=== PATIENT | male | born 1940 | race Caucasian/White ===

== ENCOUNTER 2017-07-21 22:02 | Inpatient (IN) | payer MEDICARE ==
[~2017-07-21] VITALS: Ht 180.3 cm; Wt 118.9 kg
[~2017-07-21 22:02] MED LIST: ASPIR 8181 MG; ATORVASTATIN CA80 MG PO; B12 5,000 MCG1 EACH PO; CLOPIDOGREL75 MG PO; D3 DOTS2000 UNIT PO; EFFIENT10 MG; GLIPIZIDE10 MG PO; GLUCOPHAGE500 MG PO; HYDROCHLOROTHIA25 MG PO; JANUVIA100 MG PO; JANUVIA50 MG PO; KEFLEX500 MG PO; NIACIN500 M1 PO; OMEGA 3 FISH O1 EACH PO; PLAVIX75 MG PO; RAMIPRIL10 MG PO; SOTALOL80 MG PO; WARFARIN SODIUM5 MG PO
[2017-07-21] MEDS ORDERED: KETOROLAC TROMETHAMINE 30 MG/ML VIAL IV STA (22:25)
[2017-07-21] MEDS ORDERED: SODIUM CHLORIDE 0.9% 500ML 500 ML IV STA (22:25)
[2017-07-21] MEDS ORDERED: ONDANSETRON HCL 4 MG ORAL DISINTEGRATING TAB PO ONE (22:30)
[2017-07-21] MEDS ORDERED: KETOROLAC TROMETHAMINE 30 MG/ML VIAL ONE (22:31)
[2017-07-21] MEDS ORDERED: ONDANSETRON HCL INJ 2 MG/ML VIAL ONE (22:32)
[2017-07-21] MEDS ORDERED: ONDANSETRON HCL INJ 2 MG/ML VIAL IV STA (23:04)
[2017-07-22] VITALS (8 sets, daily range): BP systolic 94–116; BP diastolic 54–70
[2017-07-22 00:16] LABS: BASOPHILS # (AUTO) 0.1 (0.0-0.1); BASOPHILS % 0.6 % (0.0-1.0); EOSINOPHILS # (AUTO) 0.4 (0.0-0.4); HEMATOCRIT 49.8 % (38.2-49.6); HEMOGLOBIN 16.6 g/dL (14.0-18.0); LYMPHOCYTES # (AUTO) 1.7 (1.0-3.2); LYMPHOCYTES % 13.4 % (18.0-39.1); MEAN CORPUSCULAR HEMOGLOBIN 30.1 pg (28-32); MEAN CORPUSCULAR HGB CONC 33.3 g/dL (31-35); MEAN CORPUSCULAR VOLUME 90.4 fL (81-99); MONOCYTES # (AUTO) 1.4 (0.2-0.8); MONOCYTES % 10.6 % (4.4-11.3); NEUTROPHILS # (AUTO) 9.3 (2.1-6.9); PLATELET COUNT 213 x10e3/uL (140-360); RED BLOOD COUNT 5.51 x10e6/uL (4.3-5.7); RED CELL DISTRIBUTION WIDTH 14.2 % (11.7-14.4)
[2017-07-22 00:35] LABS: ALBUMIN 3.7 g/dL (3.5-5.0); ALBUMIN/GLOBULIN RATIO 1.1 (0.8-2.0); CALCIUM 9.2 mg/dL (8.4-10.2); CREATININE, SERUM 2.84 mg/dL (0.72-1.25)
[2017-07-22] MEDS ORDERED: GLIPIZIDE5 MG PO (00:52)
[2017-07-22 01:07] LABS: CLARITY,URINE CLEAR (CLEAR); COLOR,URINE YELLOW (YELLOW)
[2017-07-22 01:08] LABS: BILIRUBIN,URINE NEGATIVE (NEGATIVE); KETONES,URINE NEGATIVE (NEGATIVE); LEUKOCYTE ESTERASE ,URINE NEGATIVE (NEGATIVE); NITRITE,URINE NEGATIVE (NEGATIVE); PROTEIN,URINE DIPSTICK NEGATIVE (NEGATIVE); URINE UROBILINOGEN 0.2 mg/dL (0.2 - 1)
[2017-07-22 01:09] LABS: EPITHELIAL CELLS,URINE FEW /LPF; RBC,URINE 0-5 /HPF (0-5); WBC,URINE (MAN) 0-5 /HPF (0-5)
--- NOTE | 2017-07-22 02:02 | Diagnostic Imaging Report ---
EXAM: CT ABDOMEN/PELVIS WO DATE: 07/22/2017 12:00 AM INDICATION: Abdominal pain COMPARISON: 02/11/2013 TECHNIQUE: The abdomen and pelvis were scanned using a multidetector helical scanner. Coronal and sagittal reformations were obtained. Routine protocol performed. IV Contrast: 0 ml Isovue 300/370 FINDINGS: Lack of IV contrast decreases sensitivity in evaluating abdominal and pelvic organs. LOWER THORAX: Scattered linear atelectasis/scarring. LIVER/BILIARY: No masses. No ductal dilatation. GALLBLADDER: Unremarkable SPLEEN: Unremarkable PANCREAS: Unremarkable ADRENALS: No nodules KIDNEYS: Innumerable bilateral renal cystic lesions, many which have increased in size from prior. Nonobstructing 6 mm left lower renal calculus. Minimal left hydroureteronephrosis and inflammatory changes related to a 4 mm UVJ calculus. GI TRACT: No wall thickening or evidence of obstruction. Diverticulosis. Normal appendix. VESSELS: Mild to moderate atherosclerotic calcification. PERITONEUM/RETROPERITONEUM: No free air or fluid LYMPH NODES: No lymphadenopathy REPRODUCTIVE ORGANS/BLADDER: Mild apparent bladder wall thickening may be related to underdistention. Normal prostate size. SOFT TISSUES: Fat-containing inguinal hernias. BONES: Multilevel degenerative changes. IMPRESSION: 4 mm left UVJ calculus with resulting minimal left hydroureteronephrosis and inflammatory changes. Innumerable bilateral benign-appearing renal cystic lesions, increased in size from 2012. Signed by: Dr Marilia Monk MD on 07/22/2017 1:58 AM
[2017-07-22] MEDS ORDERED: HYDROMORPHONE 1MG/1ML INJ IV PRN (02:30)
[2017-07-22] MEDS ORDERED: ONDANSETRON HCL INJ 2 MG/ML VIAL IV PRN ×2 (02:30→06:00)
[2017-07-22] MEDS: SODIUM CHLORIDE 0.9% 1000ML 1,000 ML IV SCH ×3 (02:47→17:26)
--- OUTSIDE RECORDS SUMMARY | 2017-07-22 03:14 | XMS REPORT ---
Author Author [facility] Address Unknown Phone Unavailable Care Team Providers Care Shipping/Receiving Clerk Name Role Phone ADEEL BOYKIN Unavailable Unavailable Problems This patient has no known problems. Allergies, Adverse Reactions, Alerts This patient has no known allergies or adverse reactions. Medications This patient has no known medications. Results Test Description Test Time Test Comments Text Results Atomic Results Result Comments CT ABDOMEN/PELVIS WO [place] [address] Patient Name: DARWIN ORTIZ MR #: [id number] : 1940 Age/Sex: 77/M Req # : [id number] Adm Physician: Ordered by: ADEEL BOYKIN MD Report #: [id number] Location: ER Room/Bed: Procedure: [id number] CT/CT ABDOMEN/PELVIS WO Exam Date: 07/22/17 Exam Time: 0120 REPORT STATUS: Signed EXAM: CT ABDOMEN/PELVIS WO DATE : 07/22/2017 12:00 AM INDICATION: Abdominal pain COMPARISON: 02/11/2013 TECHNIQUE: The abdomen and pelvis were scanned using a multidetector helical scanner. Coronal and sagittal reformations were obtained. Routine protocol performed. IV Contrast: 0 ml Isovue 300/370 FINDINGS: Lack of IV contrast decreases sensitivity in evaluating abdominal and pelvic organs. LOWER THORAX: Scattered linear atelectasis/scarring. LIVER/BILIARY: No masses. No ductal dilatation. GALLBLADDER: Unremarkable SPLEEN: Unremarkable PANCREAS: Unremarkable ADRENALS: No nodules KIDNEYS: Innumerable bilateral renal cystic lesions, many which have increased in size from prior. Nonobstructing 6 mm left lower renal calculus. Minimal left hydroureteronephrosis and inflammatory changes related to a 4 mm UVJ calculus. GI TRACT: No wall thickening or evidence of obstruction. Diverticulosis. Normal appendix. VESSELS: Mild to moderate atherosclerotic calcification. PERITONEUM/RETROPERITONEUM: No free air or fluid LYMPH NODES : No lymphadenopathy REPRODUCTIVE ORGANS/BLADDER: Mild apparent bladder wall thickening may be related to underdistention. Normal prostate size. SOFT TISSUES: Fat-containing inguinal hernias. BONES: Multilevel degenerative changes. IMPRESSION: 4 mm left UVJ calculus with resulting minimal left hydroureteronephrosis and inflammatory changes. Innumerable bilateral benign-appearing renal cystic lesions, increased in size from 2013. Signed by: Dr Porsha Monk MD on 07/22/2017 1:58 AM Dictated By: PORSHA MONK MD 7 Transcribed By: QI on 07/22/17157 COPY TO: ADEEL BOYKIN MD
[2017-07-22] MEDS ORDERED: ONDANSETRON HCL 4 MG ORAL DISINTEGRATING TAB PO PRN (06:00)
[2017-07-22] MEDS ORDERED: HYDRALAZINE HCL 20 MG/ML VIAL IV PRN (06:00)
[2017-07-22] MEDS ORDERED: ACETAMINOPHEN 325 MG TAB PO PRN (06:00)
[2017-07-22] MEDS ORDERED: ENOXAPARIN SOD INJ 40 MG/0.4 ML SYR SC STA (06:36)
[2017-07-22] MEDS ORDERED: DEXTROSE 50% SYRINGE 50 ML IV PRN (06:45)
[2017-07-22] MEDS: MORPHINE SULFATE 2 MG/ML SYR IV PRN (07:46)
[2017-07-22] MEDS: FAMOTIDINE 20 MG TAB PO SCH ×2 (08:55→17:26)
[2017-07-22] MEDS ORDERED: SITAGLIPTIN PHOSPHATE 100 MG PO SCH (09:00)
[2017-07-22] MEDS ORDERED: NON-FORMULARY MEDICATION (Glipizide 5 MG) PO SCH (09:00)
[2017-07-22 09:05] LABS: BASOPHILS # (AUTO) 0.1 (0.0-0.1); BASOPHILS % 0.4 % (0.0-1.0); EOSINOPHILS # (AUTO) 0.2 (0.0-0.4); EOSINOPHILS % 1.5 % (0.0-6.0); HEMATOCRIT 46.1 % (38.2-49.6); HEMOGLOBIN 15.3 g/dL (14.0-18.0); LYMPHOCYTES # (AUTO) 2.1 (1.0-3.2); LYMPHOCYTES % 15.4 % (18.0-39.1); MEAN CORPUSCULAR HEMOGLOBIN 30.1 pg (28-32); MEAN CORPUSCULAR HGB CONC 33.2 g/dL (31-35); MEAN CORPUSCULAR VOLUME 90.7 fL (81-99); MONOCYTES # (AUTO) 1.5 (0.2-0.8); MONOCYTES % 10.7 % (4.4-11.3); NEUTROPHILS # (AUTO) 9.7 (2.1-6.9); NEUTROPHILS % 71.6 % (38.7-80.0); PLATELET COUNT 190 x10e3/uL (140-360); RED BLOOD COUNT 5.08 x10e6/uL (4.3-5.7); RED CELL DISTRIBUTION WIDTH 14.1 % (11.7-14.4)
[2017-07-22] MEDS: GLIPIZIDE 5 MG TAB PO SCH (09:12)
[2017-07-22] MEDS: INSULIN LISPRO 100 UNIT/1 ML 3ML VIAL SQ SCH ×4 (09:12→21:00)
[2017-07-22 09:16] LABS: CALCIUM 8.6 mg/dL (8.4-10.2); CREATININE, SERUM 2.85 mg/dL (0.72-1.25); MAGNESIUM 1.7 MG/DL (1.3-2.1)
[2017-07-22] MEDS: CLOPIDOGREL BISULFATE 75 MG TAB PO SCH (09:25)
[2017-07-22] MEDS: HYDROCHLOROTHIAZIDE 25 MG TAB PO SCH (09:25)
[2017-07-22] MEDS: SOTALOL HCL 80 MG TAB PO SCH ×2 (09:25→17:26)
[2017-07-22] MEDS: SITAGLIPTIN 100 MG TAB PO SCH (09:25)
[2017-07-22 09:34] LABS: B-TYPE NATRIURETIC PEPTIDE2 52.5 pg/mL (0-100)
[2017-07-22 09:39] LABS: FREE T4 (FREE THYROXINE) 0.71 ng/dL (0.9-1.8); THYROID STIMULATING HORMONE 1.485 uIU/mL (0.350-4.940)
--- NOTE | 2017-07-22 11:59 | Consultation ---
DATE OF CONSULTATION: July 22, 2017 UROLOGY CONSULTATION REASON FOR CONSULTATION: Urolithiasis. HISTORY OF PRESENT ILLNESS: Arcadio Hood is a 77-year-old male man who has never had a previous urological evaluation. The patient did not know he has had previously diagnosed renal cysts. He has never had any urolithiasis. The patient denies hematuria, dysuria, or urinary tract infections. He denies any lower tract obstructive symptoms. He reports a good urinary force of stream. He reports no nocturia. No urinary incontinence. The patient has severe left-sided flank pain. He was evaluated and was admitted via the emergency room. The patient's pain has been relatively well managed since he has been admitted. PAST MEDICAL AND SURGICAL HISTORY 1. Status post L4-5 back surgery performed twice. 2. Status post right shoulder surgery. 3. Status post right upper arm surgery for tendon problem. 4. Status post bilateral cataract surgery. 5. Status post bilateral corneal transplant. 6. Diabetes mellitus. 7. Hypertension. 8. Hypercholesterolemia. SOCIAL HISTORY: The patient denies smoking, ethanol and drug use. He is a retired diesel and automotive glass installer. FAMILY HISTORY: Noncontributory to the active urological problems. ALLERGIES: CODEINE. CURRENT MEDICATIONS: Please refer to the MAR. REVIEW OF SYSTEMS: As discussed above in the history of present illness and past medical history, otherwise negative for all systems. PHYSICAL EXAMINATION GENERAL: Healthy-appearing, 77-year-old man, walking around the room in no apparent distress. VITAL SIGNS: He is currently afebrile, and the vital signs are currently stable. ABDOMEN: Soft and nondistended. Nontender, with mild left-sided costovertebral angle tenderness. The kidneys are not palpable without hepatosplenomegaly. No obvious evidence of hernia. GENITOURINARY: Testes are descended bilaterally. The left testis is more atrophic than the right testis. The patient has a normal uncircumcised male phallus with normal meatus without any lesions. RECTAL: Digital rectal examination is deferred at the present time. For the remaining physical examination systems, please refer to the admission history and physical on the chart. LABORATORY STUDIES: CT scan of the abdomen and pelvis revealed innumerable bilateral renal cysts and a 6-mm left lower pole renal stone. The patient also has left 4-mm stone at the ureterovesical junction with hydroureteronephrosis. Bilateral inguinal hernias were noted on CT. Did not appreciate these on physical examination. The patient's white blood cell count is elevated at 13,590. Hemoglobin 15.3, platelets 190,000. The patient's creatinine is 2.85, which is an elevation from his previous more mild renal insufficiency 2 years ago in the computer here. Urinalysis is significant for glycosuria. ASSESSMENT 1. Left renal colic. 2. Leukocytosis. 3. Tvusc-zf-jkodyau renal insufficiency. 4. Glycosuria. 5. Left nephrolithiasis. 6. Left ureterolithiasis. 7. Left hydroureteronephrosis due to stone. 8. Obesity. 9. Bilateral inguinal hernias. 10. Innumerable renal cysts. PLAN 1. Stone passage trial. 2. Strain the urine. 3. Hydration. 4. Hold anticoagulants. 5. If he fails to pass a stone, then he will need to go to the operating room for cystoscopy, retrograde pyelogram, left ureteroscopy, possible laser, and insertion of a stent. 6. Ongoing urological followup is a must. Job#: [id number] cc:GISELE BUITRAGO MD
[2017-07-22 12:45] LABS: INR 0.97; PARTIAL THROMBOPLASTIN TIME 27.1 seconds (23.8-35.5); PROTHROMBIN TIME 10.6 seconds (11.9-14.5)
[2017-07-22] MEDS ORDERED: NON-FORMULARY MEDICATION (Atorvastatin Calcium 80 MG) PO SCH (21:00)
[2017-07-22] MEDS ORDERED: GLIPIZIDE 5 MG TAB PO SCH (21:00)
[2017-07-22] MEDS ORDERED: NON-FORMULARY MEDICATION (Ramipril 10 MG) PO SCH (21:00)
[2017-07-22] MEDS: ATORVASTATIN 40 MG TAB PO SCH (21:21)
[2017-07-23] VITALS (7 sets, daily range): BP systolic 96–149; BP diastolic 53–89
[2017-07-23] MEDS: MORPHINE SULFATE 2 MG/ML SYR IV PRN ×4 (00:25→23:01)
[2017-07-23] MEDS: SODIUM CHLORIDE 0.9% 1000ML 1,000 ML IV SCH ×3 (00:25→18:01)
[2017-07-23 06:47] LABS: BASOPHILS # (AUTO) 0.1 (0.0-0.1); BASOPHILS % 0.4 % (0.0-1.0); EOSINOPHILS # (AUTO) 0.2 (0.0-0.4); EOSINOPHILS % 1.7 % (0.0-6.0); HEMOGLOBIN 14.2 g/dL (14.0-18.0); LYMPHOCYTES # (AUTO) 1.5 (1.0-3.2); LYMPHOCYTES % 12.8 % (18.0-39.1); MEAN CORPUSCULAR HEMOGLOBIN 30.4 pg (28-32); MEAN CORPUSCULAR VOLUME 92.1 fL (81-99); MONOCYTES # (AUTO) 1.2 (0.2-0.8); MONOCYTES % 10.2 % (4.4-11.3); NEUTROPHILS # (AUTO) 8.5 (2.1-6.9); NEUTROPHILS % 74.5 % (38.7-80.0); PLATELET COUNT 158 x10e3/uL (140-360); RED BLOOD COUNT 4.67 x10e6/uL (4.3-5.7); RED CELL DISTRIBUTION WIDTH 14.3 % (11.7-14.4)
[2017-07-23 07:15] LABS: ANION GAP 13.4 mmol/L (8-16); CALCIUM 8.1 mg/dL (8.4-10.2); CREATININE, SERUM 3.15 mg/dL (0.72-1.25); MAGNESIUM 1.5 MG/DL (1.3-2.1); POTASSIUM 4.4 mmol/L (3.5-5.1)
--- NOTE | 2017-07-23 07:30 | Diagnostic Imaging Report ---
EXAM: Abdomen 2 Views INDICATION: \S\FOLLOW UP STONES AND COMPARE TO CT \S\[id number] \S\0650 COMPARISON: None FINDINGS: Mild amount of stool in the colon. No dilated loops of small bowel. 8 mm left renal stone and 4 mm left pelvic stone that corresponds to the distal left ureter is unchanged. No abnormal soft tissue masses. Multilevel degenerative changes in the lumbar spine and pelvis. IMPRESSION: Unchanged left nephrolithiasis and distal ureterolithiasis. Signed by: Dr. Jacey Victoria M.D. on 07/23/2017 7:27 AM
[2017-07-23] MEDS: GLIPIZIDE 5 MG TAB PO SCH (07:43)
[2017-07-23] MEDS: FAMOTIDINE 20 MG TAB PO SCH ×2 (07:43→16:40)
[2017-07-23] MEDS: INSULIN LISPRO 100 UNIT/1 ML 3ML VIAL SQ SCH ×4 (07:44→21:00)
[2017-07-23] MEDS: SOTALOL HCL 80 MG TAB PO SCH ×2 (08:51→18:01)
[2017-07-23] MEDS: HYDROCHLOROTHIAZIDE 25 MG TAB PO SCH (08:51)
[2017-07-23] MEDS: SITAGLIPTIN 100 MG TAB PO SCH (08:51)
[2017-07-23] MEDS: CLOPIDOGREL BISULFATE 75 MG TAB PO SCH (08:51)
[2017-07-23] MEDS ORDERED: HYDROCODONE/APAP 5MG-325MG TAB PO PRN (14:15)
[2017-07-23 17:51] LABS: CLARITY,URINE CLEAR (CLEAR); COLOR,URINE YELLOW (YELLOW); LEUKOCYTE ESTERASE ,URINE NEGATIVE (NEGATIVE); NITRITE,URINE NEGATIVE (NEGATIVE); PROTEIN,URINE DIPSTICK NEGATIVE (NEGATIVE)
[2017-07-23 17:52] LABS: KETONES,URINE NEGATIVE (NEGATIVE); URINE UROBILINOGEN 0.2 mg/dL (0.2 - 1)
[2017-07-23 17:53] LABS: BILIRUBIN,URINE NEGATIVE (NEGATIVE)
[2017-07-23 18:02] LABS: BACTERIA,URINE FEW /HPF; EPITHELIAL CELLS,URINE RARE /LPF; RBC,URINE >50 /HPF (0-5)
[2017-07-23] MEDS: ATORVASTATIN 40 MG TAB PO SCH (21:56)
[2017-07-23] MEDS: CEFTRIAXONE SOD 1 GM VIAL IV SCH (21:56)
[2017-07-24] VITALS (7 sets, daily range): BP systolic 101–125; BP diastolic 53–71
[2017-07-24 03:59] LABS: BASOPHILS # (AUTO) 0.1 (0.0-0.1); BASOPHILS % 0.6 % (0.0-1.0); EOSINOPHILS # (AUTO) 0.2 (0.0-0.4); EOSINOPHILS % 1.8 % (0.0-6.0); HEMATOCRIT 41.1 % (38.2-49.6); HEMOGLOBIN 13.9 g/dL (14.0-18.0); LYMPHOCYTES # (AUTO) 1.6 (1.0-3.2); MEAN CORPUSCULAR HEMOGLOBIN 30.7 pg (28-32); MEAN CORPUSCULAR HGB CONC 33.8 g/dL (31-35); MEAN CORPUSCULAR VOLUME 90.7 fL (81-99); MONOCYTES # (AUTO) 1.2 (0.2-0.8); MONOCYTES % 11.7 % (4.4-11.3); NEUTROPHILS % 69.5 % (38.7-80.0); PLATELET COUNT 150 x10e3/uL (140-360); RED BLOOD COUNT 4.53 x10e6/uL (4.3-5.7)
[2017-07-24] MEDS: SODIUM CHLORIDE 0.9% 1000ML 1,000 ML IV SCH ×3 (04:10→16:46)
[2017-07-24 04:17] LABS: ANION GAP 12.1 mmol/L (8-16); CALCIUM 8.2 mg/dL (8.4-10.2); CHOL/HDL RATIO 4.4 (3.9-4.7); CREATININE, SERUM 2.68 mg/dL (0.72-1.25); MAGNESIUM 1.6 MG/DL (1.3-2.1); POTASSIUM 4.1 mmol/L (3.5-5.1)
[2017-07-24] MEDS: INSULIN LISPRO 100 UNIT/1 ML 3ML VIAL SQ SCH ×4 (07:30→20:43)
[2017-07-24] MEDS ORDERED: BELLADONNA/OPIUM 30 MG SUPP RC ONE (07:40)
[2017-07-24] MEDS ORDERED: IOPAMIDOL 610MG/1ML 300 MG/ML VIAL IV ONE ×2 (07:40→08:07)
[2017-07-24] MEDS: FAMOTIDINE 20 MG TAB PO SCH ×2 (09:59→16:46)
[2017-07-24] MEDS: GLIPIZIDE 5 MG TAB PO SCH (09:59)
[2017-07-24] MEDS: SITAGLIPTIN 100 MG TAB PO SCH (10:00)
[2017-07-24] MEDS: SOTALOL HCL 80 MG TAB PO SCH ×2 (10:00→16:46)
[2017-07-24] MEDS: HYDROCHLOROTHIAZIDE 25 MG TAB PO SCH (10:00)
[2017-07-24] MEDS: PHENAZOPYRIDINE HCL 100 MG TAB PO SCH ×3 (10:09→16:46)
[2017-07-24] MEDS: OYST-CAL-D 500MG TABLET PO SCH ×2 (10:10→16:46)
[2017-07-24] MEDS ORDERED: DEXAMETHASONE SOD PHOS INJ 4 MG/ML VIAL ONE (18:03)
[2017-07-24] MEDS ORDERED: LIDOCAINE HCL 2% LOCAL INJ 5 ML SDV VIAL INJ ONE (18:03)
[2017-07-24] MEDS ORDERED: SEVOFLURANE INHAL SOLN 250 ML PEN BTL ONE (18:03)
[2017-07-24] MEDS ORDERED: PROPOFOL IV EMULSION 10 MG/ML 20 ML VIAL ONE (18:03)
[2017-07-24] MEDS ORDERED: FENTANYL CITRATE/PF 100MCG/2 ML INJ ONE (18:39)
[2017-07-24] MEDS: CEFTRIAXONE SOD 1 GM VIAL IV SCH (21:11)
[2017-07-24] MEDS: ATORVASTATIN 40 MG TAB PO SCH (21:11)
[2017-07-25] VITALS: BP 120/62
[2017-07-25] MEDS: SODIUM CHLORIDE 0.9% 1000ML 1,000 ML IV SCH (03:57)
[2017-07-25 04:00] VITALS: BP 103/56
[2017-07-25 06:42] LABS: BASOPHILS # (AUTO) 0.1 (0.0-0.1); BASOPHILS % 0.8 % (0.0-1.0); EOSINOPHILS # (AUTO) 0.3 (0.0-0.4); HEMATOCRIT 41.4 % (38.2-49.6); HEMOGLOBIN 13.8 g/dL (14.0-18.0); LYMPHOCYTES # (AUTO) 1.7 (1.0-3.2); MEAN CORPUSCULAR HEMOGLOBIN 30.6 pg (28-32); MEAN CORPUSCULAR HGB CONC 33.3 g/dL (31-35); MEAN CORPUSCULAR VOLUME 91.8 fL (81-99); NEUTROPHILS # (AUTO) 5.3 (2.1-6.9); PLATELET COUNT 152 x10e3/uL (140-360); RED BLOOD COUNT 4.51 x10e6/uL (4.3-5.7); RED CELL DISTRIBUTION WIDTH 14.1 % (11.7-14.4)
[2017-07-25 06:53] LABS: ANION GAP 10.4 mmol/L (8-16); CALCIUM 8.6 mg/dL (8.4-10.2); CREATININE, SERUM 1.64 mg/dL (0.72-1.25); MAGNESIUM 1.7 MG/DL (1.3-2.1); POTASSIUM 4.4 mmol/L (3.5-5.1)
[2017-07-25] MEDS: INSULIN LISPRO 100 UNIT/1 ML 3ML VIAL SQ SCH (08:00)
[2017-07-25] MEDS ORDERED: PYRIDIUM100 MG PO (08:15)
[2017-07-25] MEDS ORDERED: CEFTIN PO (08:15)
[2017-07-25] MEDS ORDERED: Calcium Carbonate PO (08:15)
[2017-07-25] MEDS ORDERED: ULTRAM50 MG PO (08:17)
[2017-07-25 09:00] VITALS: BP 122/78
[2017-07-25] MEDS: FAMOTIDINE 20 MG TAB PO SCH (09:00)
[2017-07-25] MEDS: PHENAZOPYRIDINE HCL 100 MG TAB PO SCH (09:00)
[2017-07-25] MEDS: OYST-CAL-D 500MG TABLET PO SCH (09:00)
[2017-07-25] MEDS: SOTALOL HCL 80 MG TAB PO SCH (09:00)
[2017-07-25] MEDS: SITAGLIPTIN 100 MG TAB PO SCH (09:00)
[2017-07-25] MEDS: HYDROCHLOROTHIAZIDE 25 MG TAB PO SCH (09:00)
[2017-07-25] MEDS: GLIPIZIDE 5 MG TAB PO SCH (09:00)
[2017-07-25 09:28] VITALS: BP 122/78
--- NOTE | 2017-07-25 16:17 | Discharge Summary ---
ADMISSION DIAGNOSES 1. Nephrolithiasis. 2. Acute kidney injury versus chronic kidney disease. 3. Hypertension. 4. Type 2 diabetes. 5. Paroxysmal atrial fibrillation. 6. Coronary artery disease. 7. Hyperlipidemia. 8. Obesity. DISCHARGE DIAGNOSES 1. Nephrolithiasis. 2. Acute kidney injury versus chronic kidney disease. 3. Hypertension. 4. Type 2 diabetes. 5. Paroxysmal atrial fibrillation. 6. Coronary artery disease. 7. Hyperlipidemia. 8. Obesity. 9. Hypocalcemia. 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 Surgical history of lower back surgery in 1988 and 2000. Left inguinal hernia repair. Right arm surgery. Bilateral cataracts with cornea transplant. HOSPITAL COURSE: A 77-year-old male who complains of constant sharp left back pain that began . The pain went away after that night. On Monday, the pain returned after eating dinner. He denied dysuria, hematuria and fever. On admission, urology was consulted and CT of the abdomen showed a 4 mm left UVJ calculus. Urine was strained, and the patient did not pass the stone. Therefore, he had a cysto retrograde with left stent insertion as well as removal of the left ureteral stone. The patient tolerated the procedure well and was discharged home the day after the procedure. He will follow up with Dr. Duarte in about 3 weeks. He will resume all of his home medicines as well as Pyridium for 2 more days, tramadol for pain, Os-Yeison D and Ceftin for 4 more days. The patient is pain free and ready to go home. Dictated by: Анна Bates NP LUCY MAYORGA MD Job#: [id number]
[2017-08-14] MEDS ORDERED: ENOXAPARIN60 MG/0.6 SQ (09:55)
--- NOTE | 2017-09-29 20:25 | Operative Report ---
DATE OF PROCEDURE: July 24, 2017 PREOPERATIVE DIAGNOSES 1. Left ureterolithiasis. 2. Left hydronephrosis due to stone. 3. Acute renal failure. POSTOPERATIVE DIAGNOSES 1. Left ureterolithiasis. 2. Left hydronephrosis due to stone. 3. Acute renal failure. 4. Fossa navicularis and bulbar urethral strictures. PROCEDURES PERFORMED: 1. Cystourethroscopy with bilateral ureteral catheterization and retrograde ureteropyelography (separately performed for the acute renal failure). 2. Interpretation of retrograde ureteropyelography. 3. Supervision of fluoroscopy. No radiologist present. 4. Cystourethroscopy with manipulation of ureteral stone (separate procedure performed to manipulate the ureteral stone). 5. Radiological services for supervision and interpretation of stone manipulation. 6. Cystourethroscopy with insertion of left indwelling ureteral stent (separately performed to relieve the hydronephrosis). 7. Cystourethroscopy with calibration and dilation of urethral strictures. ANESTHESIA: General. COMPLICATIONS: None. CLINICAL SUMMARY: Please refer to the hospital chart. OPERATIVE PROCEDURE IN DETAIL: Informed consent was verified. Arcadio Hodo was properly identified and taken to the operating room and placed on the cystoscopy table in the supine position. Anesthesia was uneventfully begun. The patient then carefully and gently repositioned in the dorsal lithotomy position with all pressure points well padded. His genitalia were prepared and draped in the usual sterile fashion. A 22.5-Albanian cystoscope sheath with the visual obturator in place was atraumatically inserted into the patient's urethral meatus, but we could not advance past the fossa navicularis. We then calibrated the fossa navicularis at 18-Albanian in size and progressively dilated to 26-Albanian in size. We were then easily able to place a cystoscope sheath back into the urethra guided past this region and all the way down atraumatically to the bulbar urethral region where we identified another stricture. We carefully dilated across the stricture utilizing the visual obturator in place and the cystoscope sheath. We then traversed the prostate bed with was significant for visually obstructing BPH and into the patient's bladder where panendoscopy revealed grade 1 trabeculations, but no tumors and no diverticula and no suspicious lesions. Normally positioned configured ureteral orifices were identified. A 5-Albanian open-ended catheter was used to cannulate the right ureter and retrograde ureteral pyelogram was performed. It was then inserted into the left ureter and retrograde ureteropyelography was performed. We identified the filling defect of the stone and as we manipulated the ureteral catheter around it the stone was manipulated out of the ureteral orifice and into the bladder. With cystoscopic and fluoroscope guidance, a left-sided indwelling ureteral stent was then placed. It was coiled in patient's kidney as well as the patient's bladder. The retaining suture was cut short. Interpretation of retrograde ureteropyelography: Contrast was instilled in retrograde fashion bilaterally. There was medial deviation of the right ureter that was fairly pronounced. There was also initial medial deviation of the left ureter that was pronounced . The right ureter's medial deviation also did not provide any obstruction and the kidney was distorted presumably by the innumerable renal cysts. Unobstructed drainage was observed on the right hand side. The left ureter exhibited severe tortuosity. We were able to negotiate the stents so that the final stent position was coiled in patient's kidney as well as the patient's bladder. The lower pole caliceal stone on left hand side could not be well visualized on today's study. The patient's bladder was drained and the cystoscope was withdrawn. A belladonna and opium suppository was placed revealing a 35 gram prostate that was smooth and non-fluctuant without any nodules. Patient was uneventfully reversed from anesthesia and taken to the recovery room in stable condition. There were no complications during the procedure. He tolerated the procedure well. Plans will be to ensure the patient's medical status is stabilized and then following this discharge the patient will be returned to the operating room on an elective basis for ureteroscopy with laser lithotripsy. Job#: [id number]
== END 2017-07-25 10:08 | disposition home or self-care (01) | DRG 669 ==
LOC: ER 22:02 → MED/SURG2 07-22 03:12
PROVIDERS: ADMIT Internal Medicine; ATTEND Internal Medicine
PROC: 0T788ZZ Dilation of Bilateral Ureters, Via Natural or Artificial Opening Endoscopic (ICD-10-PCS; 2017-07-24)
PROC: 0T778DZ Dilation of Left Ureter with Intraluminal Device, Via Natural or Artificial Opening Endoscopic (ICD-10-PCS; 2017-07-24)
PROC: BT141ZZ Fluoroscopy of Kidneys, Ureters and Bladder using Low Osmolar Contrast (ICD-10-PCS; 2017-07-24)
PROC: 0T7D8ZZ Dilation of Urethra, Via Natural or Artificial Opening Endoscopic (ICD-10-PCS; 2017-07-24)
PROC: 0TC78ZZ Extirpation of Matter from Left Ureter, Via Natural or Artificial Opening Endoscopic (ICD-10-PCS; principal; 2017-07-24 08:30)
DX: N13.2 Hydronephrosis with renal and ureteral calculous obstruction (principal); E74.8 Other specified disorders of carbohydrate metabolism; Q61.02 Congenital multiple renal cysts; Q61.3 Polycystic kidney, unspecified; N20.1 Calculus of ureter; N13.8 Other obstructive and reflux uropathy; N17.9 Acute kidney failure, unspecified; E66.01 Morbid (severe) obesity due to excess calories; Z68.36 Body mass index [BMI] 36.0-36.9, adult; K40.20 Bilateral inguinal hernia, without obstruction or gangrene, not specified as recurrent; I48.0 Paroxysmal atrial fibrillation; Z79.01 Long term (current) use of anticoagulants; I25.10 Atherosclerotic heart disease of native coronary artery without angina pectoris; E83.51 Hypocalcemia; N40.1 Benign prostatic hyperplasia with lower urinary tract symptoms; G47.33 Obstructive sleep apnea (adult) (pediatric); E11.22 Type 2 diabetes mellitus with diabetic chronic kidney disease; I12.9 Hypertensive chronic kidney disease with stage 1 through stage 4 chronic kidney disease, or unspecified chronic kidney disease; N18.9 Chronic kidney disease, unspecified
CPT/HCPCS: 36415; 74018; 74176; 74420; 80048; 80053; 80061; 81001; 82948; 83036; 83735; 83880; 83970; 84439; 84443; 84550; 85025; 85610; 85730; 88300; 96361; 96372; 96376; 99284; C2617; J0696; J1100; J1650; J1885; J2001; J2270; J2405; J7030; J7040

== ENCOUNTER → 2017-08-16 | Day surgery (SDC) | payer MEDICARE ==
--- NOTE | 2017-08-14 09:41 | Diagnostic Imaging Report ---
PROCEDURE: X-RAY CHEST, TWO VIEWS COMPARISON: Patients [facility], DX, CHEST SINGLE (PORTABLE), 12/21/2011, 15:32. INDICATIONS: PREOPERATIVE CHEST XRAY FOR KIDNEY STONE SURGERY FINDINGS: LUNGS: No consolidations or edema. PLEURA: No effusions or pneumothorax. HEART \T\ MEDIASTINUM: The heart is within normal size-limits. The right hemidiaphragm remains elevated secondary to focal eventration anteriorly. BONES \T\ SOFT TISSUES: No acute findings. Degenerative changes of the spine. CONCLUSION: No acute thoracic abnormality. Shorty Vuong D.O. Dictated by: Shorty Vuong D.O. on 08/14/2017 at 9:44 Electronically approved by: Shorty Vuong D.O. on 08/14/2017 at 9:44
[~2017-08-16] MED LIST changes: +BELLADONNA/OPIUM 30 MG SUPP RC ONE; +CEFTIN PO; +CEFTRIAXONE SOD 1 GM VIAL ONE; +Calcium Carbonate PO; +DEXAMETHASONE SOD PHOS INJ 4 MG/ML VIAL ONE; +ENOXAPARIN60 MG/0.6 SQ; +FENTANYL CITRATE/PF 100MCG/2 ML INJ ONE; +GLIPIZIDE5 MG PO; +IOPAMIDOL 610MG/1ML 300 MG/ML VIAL IV ONE; +LIDOCAINE HCL 2% LOCAL INJ 5 ML SDV VIAL INJ ONE; +MIDAZOLAM HCL 2 MG/2 ML VIAL ONE; +ONDANSETRON HCL INJ 2 MG/ML VIAL ONE; +PROPOFOL IV EMULSION 10 MG/ML 20 ML VIAL ONE; +PYRIDIUM100 MG PO; +SEVOFLURANE INHAL SOLN 250 ML PEN BTL ONE; +ULTRAM50 MG PO
--- NOTE | 2017-08-16 10:10 | Diagnostic Imaging Report ---
PROCEDURE:X-RAY ABDOMEN - KUB COMPARISON:[facility], CT, CT ABDOMEN/PELVIS WO, 07/22/2017, 1:20. INDICATIONS:PRE OP KUB STONES FINDINGS: There is a left double-J ureteral stent present. A 7 mm lower pole left renal stone again identified. Previously visualized and described distal left ureteral stone not seen on this study. There are no dilated loops of bowel to suggest obstruction. There are no masses. There is no evidence of free air. No acute osseous abnormalities are present. Postsurgical changes associated with a laminectomy at L5 again noted. Degenerative changes of the spine. CONCLUSION: Left renal lithiasis. Shorty Vuong D.O. Dictated by: Shorty Vuong D.O. on 08/16/2017 at 10:14 Electronically approved by: Shorty Vuong D.O. on 08/16/2017 at 10:14
--- NOTE | 2017-09-29 16:39 | Operative Report ---
DATE OF PROCEDURE: August 16, 2017 PREOPERATIVE DIAGNOSES: 1. Left nephrolithiasis. 2. Left indwelling ureteral stent. POSTOPERATIVE DIAGNOSES: 1. Left nephrolithiasis. 2. Left indwelling ureteral stent. PROCEDURES PERFORMED: Note these are all staged procedures as part of managing the patient's urolithiasis. 1. Cystourethroscopy with complicated removal of a left indwelling ureteral stent (separate procedure performed for the diagnosis of stent and with a separate scope). 2. Left ureteropyeloscopy with stone manipulation (separate procedure performed for the diagnosis of the stones). 3. Interpretation of retrograde ureteropyelography. 4. Supervision of fluoroscopy. No radiologist present. 5. Radiological services for supervision and interpretation of ureteroscopy. ANESTHESIA: General. COMPLICATIONS: None. CLINICAL SUMMARY: Arcadio Hood is a 77-year-old man who has a stent. He has had a previous stone. He is brought for the above procedures. He is aware of the risks of bleeding, infection, injury to adjacent structures, need for additional procedures and elected to proceed. OPERATIVE PROCEDURE IN DETAIL: Informed consent was verified. Arcadio Hood was properly identified, taken to the operating room and placed on the cystoscopy table in supine position. Anesthesia was uneventfully begun. The patient was then carefully and gently re-positioned in dorsal lithotomy position with all pressure points well padded. His genitalia were prepared and draped in the usual sterile fashion. The 22.5-Latvian cystourethroscope sheath with the visual obturator in place was atraumatically inserted into the patient's urethra. It was guided down the unremarkable distal urethra through wide-caliber strictures at the bulbar region. We traversed the normal sphincter and went through the prostate bed, which was significant for BPH with visual obstruction and an elevated median bar. Panendoscopy of the urinary bladder revealed some trabeculations but no tumors, no stones and no diverticula. The stent was noted to be emerging from the left ureteral orifice. A guidewire was then placed alongside the stent and guided to the level of the patient's kidney. The stent was then grasped, completely removed and discarded. Semirigid ureteroscope was then inserted alongside the guidewire into the left ureter. The left distal ureter exhibited no stones. The flexible ureteroscope was then placed over the guidewire and guided into the patient's kidney with fluoroscopic and videoscopic guidance. Careful panendoscopy of the intrarenal collecting system revealed very fine sand and stone material and multiple Michael's plaques present on all papillae. These Michael's plaques were rather dense and corresponded to what was believed to be a stone on the patient's CT scan. We irrigated the small sand and stones to loosen them from the mucosa. Once the stone manipulation was completed, we carefully removed the ureteroscope and carefully examined the ureter as we exited. The ureter did not exhibit any residual stones. Interpretation of retrograde ureteropyelography: Contrast was instilled in a retrograde fashion on the left-hand side. It revealed kinking at the ureteropelvic junction and distortion of the system from the patient's known kidney stones. Unobstructed drainage was observed fluoroscopically. The patient's bladder was drained, and the cystoscope was withdrawn. Digital rectal examination revealed a 40 gram prostate that was smooth, non-fluctuant and without any nodules. Patient was then uneventfully reversed from anesthesia and taken to the recovery room in stable condition. There were no complications to the procedure. He tolerated the procedure well. Explicit postoperative instructions were given. Will follow the patient up in the office. Job#: [id number] EV
== END | disposition home or self-care (01) ==
LOC: OR 08:10
PROVIDERS: ATTEND Urology
DX: N20.0 Calculus of kidney (principal); Z46.6 Encounter for fitting and adjustment of urinary device; N35.9 Urethral stricture, unspecified; N40.1 Benign prostatic hyperplasia with lower urinary tract symptoms; N13.8 Other obstructive and reflux uropathy; N32.89 Other specified disorders of bladder; N13.5 Crossing vessel and stricture of ureter without hydronephrosis; E11.9 Type 2 diabetes mellitus without complications; K75.9 Inflammatory liver disease, unspecified; G47.33 Obstructive sleep apnea (adult) (pediatric); I10 Essential (primary) hypertension; I25.10 Atherosclerotic heart disease of native coronary artery without angina pectoris; Z88.6 Allergy status to analgesic agent; Z01.818 Encounter for other preprocedural examination; Z79.02 Long term (current) use of antithrombotics/antiplatelets; Z79.84 Long term (current) use of oral hypoglycemic drugs; Z95.5 Presence of coronary angioplasty implant and graft
CPT/HCPCS: 36415; 52352; 71046; 74420; 82948; J0696; J1100; J2001; J2250; J2405; Q9967; 74018

== ENCOUNTER 2017-12-19 07:10 | Inpatient (IN) | payer MEDICARE ==
[~2017-12-19] VITALS: Ht 180.3 cm; Wt 83.0 kg
[~2017-12-19 07:10] MED LIST changes: -BELLADONNA/OPIUM 30 MG SUPP RC ONE; -CEFTRIAXONE SOD 1 GM VIAL ONE; -DEXAMETHASONE SOD PHOS INJ 4 MG/ML VIAL ONE; -FENTANYL CITRATE/PF 100MCG/2 ML INJ ONE; -IOPAMIDOL 610MG/1ML 300 MG/ML VIAL IV ONE; -LIDOCAINE HCL 2% LOCAL INJ 5 ML SDV VIAL INJ ONE; -MIDAZOLAM HCL 2 MG/2 ML VIAL ONE; -ONDANSETRON HCL INJ 2 MG/ML VIAL ONE; -PROPOFOL IV EMULSION 10 MG/ML 20 ML VIAL ONE; -SEVOFLURANE INHAL SOLN 250 ML PEN BTL ONE
--- OUTSIDE RECORDS SUMMARY | 2017-12-19 07:13 | XMS REPORT | Summary of Care ---
Author Author [facility] Address Unknown Phone Unavailable Encounter HQ Encntr_alias([facility]) [id number] Date(s): 09/17/14 - 10/16/14 [facility] Discharge Disposition: Home Attending Physician: Curtis Rodriguez MD Referring Physician: Jose Samayoa MD Vital Signs No data available for this section Problem List No data available for this section Allergies, Adverse Reactions, Alerts Substance Reaction Severity Status codeine Active Medications No data available for this section Results No data available for this section Immunizations No data available for this section Procedures No data available for this section Social History Social History Type Response Assessment and Plan No data available for this section
--- OUTSIDE RECORDS SUMMARY | 2017-12-19 07:13 | XMS REPORT | Summary of Care ---
Author Author [facility] Organization [facility] Address Unknown Phone Unavailable Encounter KATI Price(CHARU) [id number] Date(s): 12/03/15 - 12/03/15 [facility] [address] [place] [phone] Discharge Disposition: Home or Self Care Attending Physician: Filiberto Bridges MD Referring Physician: Filiberto Bridges MD Vital Signs 1 2 3 Most recent to oldest [Reference Range]: 180.34 cm (12/03/15 6:30 AM) Height 98.2 DegF (12/03/15 6:20 AM) 96.9 DegF (12/01/15 8:48 AM) Temperature Oral [96.4-99.1 DegF] 128/68 mmHg (12/03/15 2:15 PM) 134/80 mmHg (12/03/15 2:00 PM) 129/73 mmHg (12/03/15 1:45 PM) Blood Pressure [90-140/60-90 mmHg] 16 BRMIN (12/03/15 2:15 PM) 16 BRMIN (12/03/15 2:00 PM) 15 BRMIN (12/03/15 1:45 PM) Respiratory Rate [14-20 BRMIN] 59 bpm *LOW* (12/03/15 10:00 AM) 61 bpm (12/03/15 9:55 AM) 60 bpm (12/03/15 9:50 AM) Peripheral Pulse Rate [60-100 bpm] 121.364 kg (12/03/15 6:30 AM) Weight 37.32 m2 (12/03/15 6:30 AM) Body Mass Index Problem List Condition Effective Dates Status Health Status Informant Arthritis(Confirmed) Active Arrhythmia(Confirmed Active ) CAD (coronary artery Active disease)(Confirmed) Diabetes(Confirmed) Active SOB (shortness of Active breath) on exertion(Confirmed) Fuchs' corneal 2009 Resolved dystrophy(Confirmed) Hernia of abdominal 2005 - 2005 Resolved cavity(Confirmed) Hypercholesterolemia Active (Confirmed) Hypertension(Confirm Active ed) Hepatitis(Confirmed) 1964 Resolved 1 Paralysis of Active diaphragm(Confirmed) 2, 3 Numbness and Active tingling of foot(Confirmed) Sleep Active apnea(Confirmed) 1Type unknown 2right side 3Hemi Allergies, Adverse Reactions, Alerts Substance Reaction Severity Status codeine Active Medications acetaminophen 1,000 mg, 2 tab, Route: PO, Drug form: TAB, Q6Hnow, Dosing Weight 121.364, kg, S tart date: 12/03/15 10:00:00 CDT, Duration: 30 day, Stop date: 01/02/16 4:00:00 ROPER OPERATOR Notes: Max acetaminophen 4000 mg/day (4 gm/day). (Same as: Tylenol Extra Streng th) Start Date: 12/03/15 Stop Date: 12/04/15 Status: Discontinued ANES flumazenil 0.2 mg, 2 mL, Route: IVP, Drug form: INJ, PRN, Dosing Weight 121.364, kg, PRN Be nzodiazepine Reversal, Initial dose, Start date: 12/03/15 9:35:00 CDT, Duration: 30 day, Stop date: 01/02/16 8:34:00 ROPER OPERATOR Notes: (Same as: Romazicon) Start Date: 12/03/15 Stop Date: 12/04/15 Status: Discontinued ANES HYDROmorphone 0.5 mg, 0.25 mL, Route: IVP, Drug form: INJ, Q5Min, Dosing Weight 121.364, kg, P RN Pain Score 7-10, Start date: 12/03/15 9:35:00 CDT, Duration: 4 doses or times , Stop date: 12/04/15 0:00:00 CDT Notes: Same as Dilaudid Start Date: 12/03/15 Stop Date: 12/04/15 Status: Completed ANES meperidine 12.5 mg, 0.25 mL, Route: IVP, Drug form: INJ, Q30Min, Dosing Weight 121.364, kg, PRN Other -See Comment, For shivering, Start date: 12/03/15 9:35:00 CDT, Durati on: 2 doses or times, Stop date: Limited # of times Notes: (Same as: Demerol) "Use Precaution in Elderly, Seizure disorders, and Re nal impairment" Start Date: 12/03/15 Stop Date: 12/04/15 Status: Discontinued ANES naloxone 0.4 mg, 1 mL, Route: IVP, Drug form: INJ, Q2MIN, Dosing Weight 121.364, kg, PRN Narcotic Reversal, Start date: 12/03/15 9:35:00 CDT, Duration: 8 doses or times, Stop date: Limited # of times Notes: Same as Narcan Start Date: 12/03/15 Stop Date: 12/04/15 Status: Discontinued ANES ondansetron 4 mg, 2 mL, Route: IVP, Drug form: INJ, ONCE, Dosing Weight 121.364, kg, PRN Deshaun sea & Vomiting, Start date: 12/03/15 9:35:00 CDT Notes: (Same as: Sandor) MEDICATION WASTE Product Size: 4 mgProduct Was tom: ___ mg Start Date: 12/03/15 Stop Date: 12/04/15 Status: Discontinued atorvastatin 80 mg oral tablet 80 mg=1 tab, PO, Bedtime, # 30 tab, 0 Refill(s) Start Date: 11/25/15 Status: Ordered celecoxib 200 mg, 1 cap, Route: PO, Drug form: CAP, [id number], Dosing Weight 121.364, kg, St art date: 12/03/15 10:00:00 CDT, Duration: 30 day, Stop date: 01/01/16 22:00:00 ROPER OPERATOR Notes: NSAID. Please check indication. Not for seizure. (Same As: CeleBREX) Start Date: 12/03/15 Stop Date: 12/04/15 Status: Discontinued clopidogrel 75 mg oral tablet 75 mg=1 tab, PO, Daily, # 30 tab, 0 Refill(s) Start Date: 11/25/15 Stop Date: 12/03/15 Status: Discontinued docusate sodium 100 mg oral capsule 100 mg=1 cap, PO, BID, # 30 cap, 0 Refill(s) Start Date: 12/03/15 Status: Ordered glipiZIDE 10 mg oral tablet 5 mg=0.5 tab, PO, BID, 0 Refill(s) Start Date: 11/25/15 Status: Ordered Home Medication PO, Daily, Vitamin D3, fish oil, Vitamin B12 & multi-vitamin, Refill(s) 0 Start Date: 11/25/15 Stop Date: 12/03/15 Status: Discontinued hydrochlorothiazide See Instructions, 25 mg PO QOD., 0 Refill(s) Start Date: 11/25/15 Status: Ordered hydromorphone 0.3 mg, 0.15 mL, Route: IVP, Drug form: INJ, Q4H, Dosing Weight 121.364, kg, PRN Pain Score 7-10, Start date: 12/03/15 9:36:00 CDT, Duration: 30 day, Stop date: 01/02/16 9:35:00 ROPER OPERATOR Notes: Same as Dilaudid Start Date: 12/03/15 Stop Date: 12/04/15 Status: Discontinued Januvia 100 mg oral tablet See Instructions, 1/2 tab PO Daily, 0 Refill(s) Start Date: 11/25/15 Status: Ordered Lactated Ringers 1,000 mL 1,000 mL, Rate: 100 ml/hr, Infuse over: 10 hr, Route: IV, Dosing Weight 120.455 kg, Total Volume: 1,000, Start date: 12/03/15 6:06:00 CDT, Duration: 30 day, Sto p date: 01/02/16 6:05:00 ROPER OPERATOR Start Date: 12/03/15 Stop Date: 12/04/15 Status: Discontinued Lovenox 60 mg/0.6 mL subcutaneous solution 60 mg, SUB-Q, Daily, Started 11-27-15 thru 12-02-15, am., # 14 syr, 0 Refill(s) Start Date: 11/30/15 Stop Date: 12/07/15 Status: Suspended metFORMIN 500 mg oral tablet, extended release 500 mg=1 tab, PO, BID-Meals, # 60 tab, 1 Refill(s) Start Date: 11/25/15 Status: Ordered niacin 500 mg oral capsule 1,000 mg=2 cap, PO, Bedtime, 0 Refill(s) Start Date: 11/25/15 Stop Date: 12/03/15 Status: Discontinued Gaston 10/325 oral tablet 1-2 tab, PO, Q4-6H, PRN Pain, X 5 day, # 30 tab, 0 Refill(s), given to patient Start Date: 12/03/15 Stop Date: 12/08/15 Status: Ordered oxyCODONE 5 mg immediate release 5 mg, 1 tab, Route: PO, Drug form: TAB, Q4H, Dosing Weight 121.364, kg, PRN Pain Score 4-6, Start date: 12/03/15 9:36:00 CDT, Duration: 30 day, Stop date: 01/01 9:35:00 ROPER OPERATOR Notes: (Same as: Roxicodone) Start Date: 12/03/15 Stop Date: 12/04/15 Status: Discontinued polymyxin B sulfate + sodium chloride 0.9% INJ 250 mL 125,000 unit, Route: IRRIG, Drug form: PDR/INJ, PRE OP, Start date: 12/03/15 10: 00:00 CDT, Duration: 30 day, Stop date: 01/02/16 8:59:00 ROPER OPERATOR Notes: (Same as: Polymyxin B Sulfate) Start Date: 12/03/15 Stop Date: 12/03/15 Status: Discontinued pregabalin 100 mg, 1 cap, Route: PO, Drug form: CAP, Q8Hnow, Dosing Weight 121.364, kg, Sta rt date: 12/03/15 10:00:00 CDT, Duration: 30 day, Stop date: 01/02/16 2:00:00 CS T Notes: (Same as: Lyrica) Start Date: 12/03/15 Stop Date: 12/04/15 Status: Discontinued ramipril 10 mg oral capsule See Instructions, 1 cap PO Daily 30 day, 0 Refill(s) Start Date: 11/25/15 Status: Ordered ropivacaine 100 mL, Route: InFILtration(local), Drug Form: INJ, ONCE, Start date: 12/03/15 6 :51:00 CDT, Stop date: 12/03/15 6:51:00 CDT Notes: NOT FOR IV useRopivacaine 5 mg/mL (49.25 mL) Epinephrine 1 mg/mL (0.5 mL) Clonidine 0.1 mg/mL (0.8 mL) Ketorolac 30 mg/mL (1 mL) Normal Saline 48 .45 mL Start Date: 12/03/15 Stop Date: 12/03/15 Status: Ordered Sotalol Hydrochloride AF 80 mg oral tablet See Instructions, 1/2 tab PO BID Take DOS, 0 Refill(s) Start Date: 11/25/15 Status: Ordered tramadol 100 mg, 2 tab, Route: PO, Drug form: TAB, Q6Hnow, Dosing Weight 121.364, kg, Sta rt date: 12/03/15 10:00:00 CDT, Duration: 30 day, Stop date: 01/02/16 4:00:00 CS T Notes: Not to exceed 400mg/day. (Same As: Ultram) Start Date: 12/03/15 Stop Date: 12/04/15 Status: Discontinued vancomycin + sodium chloride 0.9% 500 mL INJ (for IV set) 500 mL 1.75 gm, Route: IV, ONCE, Dosing Weight 120.455, kg, Start date: 12/03/15 6:17:0 0 CDT, Stop date: 12/03/15 6:17:00 CDT Notes: TIME CRITICAL MEDICATION(Same As: Vancocin)Infusion rate< 1000 mg: infuse over 1 [id number] - 1500 mg: infuse over 1.5 [id number] - 2000 mg: infuse over 2 hours> 2001 mg: infuse over 2.5 hours MEDICATION WASTE Product Size: 1000 mgProduct Wasted: ___ mg Start Date: 12/03/15 Stop Date: 12/03/15 Status: Completed vancomycin + sodium chloride 0.9% INJ 250 mL 500 mg, Route: IRRIG, Drug form: PDR/INJ, PRE OP, Start date: 12/03/15 10:00:00 CDT, Duration: 30 day, Stop date: 01/02/16 8:59:00 ROPER OPERATOR Notes: TIME CRITICAL MEDICATION(Same As: Vancocin) Start Date: 12/03/15 Stop Date: 12/03/15 Status: Discontinued Zofran 4 mg oral tablet 4 mg=1 tab, PO, Q8H, PRN Nausea/Vomiting, X 8 day, # 24 tab, 0 Refill(s) Start Date: 12/03/15 Stop Date: 12/11/15 Status: Ordered Zofran 4 mg oral tablet 4 mg=1 tab, PO, Q8H, PRN Nausea/Vomiting, X 8 day, # 24 tab, 0 Refill(s), Pharma [facility]: [phone] Start Date: 12/03/15 Stop Date: 12/03/15 Status: Discontinued Results BLOOD BANK RESULTS Most recent to 1 oldest [Reference Range]: ABO/Rh O POS *Unknown* (11/30/15 10:10 AM) Antibody Scrn Negative (11/30/15 10:10 AM) ELECTROLYTES Most recent to 1 oldest [Reference Range]: Sodium Lvl [135-145 142 mEq/L mEq/L] (11/30/15 10:10 AM) Potassium Lvl 4.8 mEq/L [3.5-5.1 mEq/L] (11/30/15 10:10 AM) Chloride Lvl [95-109 105 mEq/L mEq/L] (11/30/15 10:10 AM) CO2 [24-32 mEq/L] 34 mEq/L *HI* (11/30/15 10:10 AM) AGAP [10.0-20.0 7.8 mEq/L mEq/L] *LOW* (11/30/15 10:10 AM) CHEM PANEL Most recent to 1 oldest [Reference Range]: Creatinine Lvl 1.31 mg/dL [0.50-1.40 mg/dL] (11/30/15 10:10 AM) eGFR 52 mL/min/1.73m2 1 *NA* (11/30/15 10:10 AM) BUN [7-22 mg/dL] 16 mg/dL (11/30/15 10:10 AM) B/C Ratio [6-25] 12 (11/30/15 10:10 AM) Glucose Lvl [70-99 159 mg/dL mg/dL] *HI* (11/30/15 10:10 AM) Total Protein 6.6 g/dL [6.4-8.4 g/dL] (11/30/15 10:10 AM) Albumin Lvl [3.5-5.0 3.2 g/dL g/dL] *LOW* (11/30/15 10:10 AM) Globulin [2.7-4.2 3.4 g/dL g/dL] (11/30/15 10:10 AM) A/G Ratio [0.7-1.6] 0.9 (11/30/15 10:10 AM) Calcium Lvl 8.7 mg/dL [8.5-10.5 mg/dL] (11/30/15 10:10 AM) ALT [0-65 unit/L] 46 unit/L (11/30/15 10:10 AM) AST [0-37 unit/L] 32 unit/L (11/30/15 10:10 AM) Alk Phos [39-136 61 unit/L unit/L] (11/30/15 10:10 AM) Bili Total [0.2-1.3 0.7 mg/dL mg/dL] (11/30/15 10:10 AM) 1Result Comment: The eGFR is calculated using the CKD-EPI formula. In most young, healthy individuals the eGFR will be >90 mL/min/1.73m2. The eGFR declines with age. An eGFR of 60-89 may be normal in some populations, particularly the elderly, for whom the CKD-EPI formula has not been extensively validated. Use of the eGFR is not recommended in the following populations: Individuals with unstable creatinine concentrations, including patients and those with serious co-morbid conditions. Patients with extremes in muscle mass or diet. The data above are obtained from the National Kidney Disease Education Program ( NKDEP) which additionally recommends that when the eGFR is used in patients with extremes of body mass index for purposes of drug dosing, the eGFR should be mul tiplied by the estimated BMI. SPECIAL CHEMISTRY Most recent to 1 oldest [Reference Range]: Hgb A1C [<=5.6 %] 6.5 % *HI* (11/30/15 10:10 AM) HEMATOLOGY Most recent to 1 oldest [Reference Range]: WBC [3.7-10.4 K/CMM] 7.6 K/CMM (11/30/15 10:10 AM) RBC [4.70-6.10 5.59 M/CMM M/CMM] (11/30/15 10:10 AM) Hgb [14.0-18.0 g/dL] 16.9 g/dL (11/30/15 10:10 AM) Hct [42.0-54.0 %] 50.9 % (11/30/15 10:10 AM) MCV [80.0-94.0 fL] 91.0 fL (11/30/15 10:10 AM) MCH [27.0-31.0 pg] 30.3 pg (11/30/15 10:10 AM) MCHC [32.0-36.0 33.3 g/dL g/dL] (11/30/15 10:10 AM) RDW [11.5-14.5 %] 13.7 % (11/30/15 10:10 AM) Platelet [133-450 203 K/CMM K/CMM] (11/30/15 10:10 AM) MPV [7.4-10.4 fL] 8.7 fL (11/30/15 10:10 AM) Segs [45.0-75.0 %] 65.9 % (11/30/15 10:10 AM) Lymphocytes 20.1 % [20.0-40.0 %] (11/30/15 10:10 AM) Monocytes [2.0-12.0 9.7 % %] (11/30/15 10:10 AM) Eosinophils [0.0-4.0 3.5 % %] (11/30/15 10:10 AM) Basophils [0.0-1.0 0.8 % %] (11/30/15 10:10 AM) Segs-Bands # 5.0 K/CMM [1.5-8.1 K/CMM] (11/30/15 10:10 AM) Lymphocytes # 1.5 K/CMM [1.0-5.5 K/CMM] (11/30/15 10:10 AM) Monocytes # [0.0-0.8 0.7 K/CMM K/CMM] (11/30/15 10:10 AM) Eosinophils # 0.3 K/CMM [0.0-0.5 K/CMM] (11/30/15 10:10 AM) Basophils # [0.0-0.2 0.1 K/CMM K/CMM] (11/30/15 10:10 AM) PT [12.0-14.7 13.1 seconds seconds] (11/30/15 10:10 AM) INR [0.85-1.17] 0.97 (11/30/15 10:10 AM) PTT [22.9-35.8 34.2 seconds seconds] (11/30/15 10:10 AM) Immunizations No data available for this section Procedures Procedure Date Related Diagnosis Body Site Arthroscopy of shoulder 12/03/15 Hemorrhoidectomy 09/2015 Placement of stent1, 2 2014 Corneal transplant 2010 Angioplasty Lumbar discectomy3 Procedure 1stents x 3 [id number] x 2 stents 2013 x 1stent 3x 2 Social History Social History Type Response Substance Abuse Use: None. Exercise Exercise duration: 0. Alcohol Never, Previous treatment: None. Smoking Status Never smoker; Exposure to Tobacco Smoke None; Cigarette Smoking Last 365 Days No; Reg Smoking Cessation Counseling No Assessment and Plan No data available for this section
--- OUTSIDE RECORDS SUMMARY | 2017-12-19 07:13 | XMS REPORT | Continuity of Care Document ---
Author Author Antonia salgado Organization Interface Address Unknown Phone Unavailable Problems Problem Status Onset Date Classification Date Reported Comments Source KNEE Active 12/13/2017 [facility] RIGHT LUMBOSACRAL RAD / HIP OA Active 06/19/2017 [facility] RIGHT LUMBOSACRAL RAD/HIP OA Active 05/18/2017 [facility] LUMBAR RADICULOPATHY ACUTE [facility] M[facility].36 LUMBAR REGION, M51.16, M47.26 Active 09/19/2016 [facility] RT SHLD RTC Active 02/21/2016 [facility] RIGHT SHLD RCT Active 12/22/2015 [facility] SHOULDER LABRAL REPAIR Active 10/22/2015 [facility] - COUGH Active 07/17/2015 [facility] [place] RTC TEAR Active 09/17/2014 [facility] RT SHOULDER Active 09/16/2014 [facility] [place] PAIN Active 09/16/2014 [facility] Fuchs' corneal dystrophy Resolved 02/20/2009 Problem 01/14/2017 [facility] Fuchs' corneal dystrophy Resolved 02/20/2009 Problem 01/30/2017 [facility] [place] Hernia of abdominal cavity Resolved 02/20/2005 Problem 01/14/2017 [facility] Hernia of abdominal cavity Resolved 02/20/2005 Problem 01/30/2017 [facility] [place] Hepatitis<sup>1</sup> Resolved 02/20/1963 Problem 01/14/2017 Type unknown [facility] Hepatitis<sup>1</sup> Resolved 02/20/1963 Problem 01/30/2017 Type unknown [facility] [place] Arthritis Active Problem 01/14/2017 [facility] Arrhythmia Active Problem 01/14/2017 [facility] CAD (<span ID="[id number]">Confirmed</span>) Active Problem 01/14/2017 [facility] Diabetes Active Problem 01/14/2017 [facility] SOB on exertion(<span ID="[id number]">Confirmed</span>) Active Problem 01/14/2017 [facility] Hypercholesterolemia Active Problem 01/14/2017 [facility] Hypertension Active Problem 01/14/2017 [facility] 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, 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 01/14/2017 [facility] Numbness and tingling of foot Active Problem 01/14/2017 [facility] Sleep apnea Active Problem 01/14/2017 [facility] Arthritis Active Problem 01/30/2017 [facility] [place] Arrhythmia Active Problem 01/30/2017 [facility] [place] CAD (<span ID="[id number]">Confirmed</span>) Active Problem 01/30/2017 [facility] [place] Diabetes Active Problem 01/30/2017 [facility] [place] SOB on exertion(<span ID="[id number]">Confirmed</span>) Active Problem 01/30/2017 [facility] [place] Hypercholesterolemia Active Problem 01/30/2017 [facility] [place] Hypertension Active Problem 01/30/2017 [facility] [place] 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, 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 01/30/2017 [facility] [place] Numbness and tingling of foot Active Problem 01/30/2017 [facility] [place] Sleep apnea Active Problem 01/30/2017 [facility] [place] Medications Medication Details Route Status Patient Instructions Ordering Provider Order Date Source Ondansetron 4 MG Oral Tablet [Zofran] 4 mg=1 tab, PO, Q8H, PRN Nausea/Vomiting, X 8 day, # 24 tab, 0 Refill(s) Active 12/03/2015 [facility] Ondansetron 4 MG Oral Tablet [Zofran] 4 mg=1 tab, PO, Q8H, PRN Nausea/Vomiting, X 8 day, # 24 tab, 0 Refill(s), Pharmacy: [id number] Inactive 12/03/2015 [facility] Docusate Sodium 100 MG Oral Capsule 100 mg=1 cap, PO, BID, # 30 cap, 0 Refill(s) Active 12/03/2015 [facility] Acetaminophen 325 MG / Hydrocodone Bitartrate 10 MG Oral Tablet [[place] 10/325] 1-2 tab, PO, Q4-6H, PRN Pain, X 5 day, # 30 tab, 0 Refill(s), given to patient Active 12/03/2015 [facility] pregabalin 100 mg, 1 cap, Route: PO, Drug form: CAP, Q8Hnow, Dosing Weight 121.364, kg, Start date: 12/03/15 10:00:00 CDT, Duration: 30 day, Stop date: 01/02/16 2:00:00 CSTNotes: (Same as: Lyrica) No Longer Active 12/03/2015 [facility] celecoxib 200 mg, 1 cap, Route: PO, Drug form: CAP, [id number], Dosing Weight 121.364, kg, Start date: 12/03/15 10:00:00 CDT, Duration: 30 day, Stop date: 01/01/16 22:00:00 CSTNotes: NSAID. Please check indication. Not for seizure. (Same As: CeleBREX) No Longer Active 12/03/2015 [facility] Tramadol 100 mg, 2 tab, Route: PO, Drug form: TAB, Q6Hnow, Dosing Weight 121.364, kg, Start date: 12/03/15 10:00:00 CDT, Duration: 30 day, Stop date: 01/02/16 4:00:00 CSTNotes: Not to exceed 400mg/day. (Same As: Ultram) No Longer Active 12/03/2015 [facility] Acetaminophen 1,000 mg, 2 tab, Route: PO, Drug form: TAB, Q6Hnow, Dosing Weight 121.364, kg, Start date: 12/03/15 10:00:00 CDT, Duration: 30 day, Stop date: 01/02/16 4:00:00 CSTNotes: Max acetaminophen 4000 mg/day (4 gm/day). (Same as: Tylenol Extra Strength) No Longer Active 12/03/2015 [facility] vancomycin + sodium chloride 0.9% INJ 250 mL 500 mg, Route: IRRIG, Drug form: PDR/INJ, PRE OP, Start date: 12/03/15 10:00:00 CDT, Duration: 30 day, Stop date: 01/02/16 8:59:00 CSTNotes: TIME CRITICAL MEDICATION (Same As: Vancocin) Inactive 12/03/2015 [facility] polymyxin B sulfate + sodium chloride 0.9% INJ 250 mL 125,000 unit, Route: IRRIG, Drug form: PDR/INJ, PRE OP, Start date: 12/03/15 10:00:00 CDT, Duration: 30 day, Stop date: 01/02/16 8:59:00 CSTNotes: (Same as: Polymyxin B Sulfate) Inactive 12/03/2015 [facility] Hydromorphone 0.3 mg, 0.15 mL, Route: IVP, Drug form: INJ, Q4H, Dosing Weight 121.364, kg, PRN Pain Score 7-10, Start date: 12/03/15 9:36:00 CDT, Duration: 30 day, Stop date: 01/02/16 9:35:00 CSTNotes: Same as Dil audid No Longer Active 12/03/2015 [facility] Oxycodone Hydrochloride 5 MG Oral Tablet 5 mg, 1 tab, Route: PO, Drug form: TAB, Q4H, Dosing Weight 121.364, kg, PRN Pain Score 4-6, Start date: 12/03/15 9:36:00 CDT, Duration: 30 day, Stop date: 01/02/16 9:35:00 CSTNotes: (Same as: Roxicodone) No Longer Active 12/03/2015 [facility] Ondansetron 4 mg, 2 mL, Route: IVP, Drug form: INJ, ONCE, Dosing Weight 121.364, kg, PRN Nausea & Vomiting, Start date: 12/03/15 9:35:00 CDTNotes: (Same as: Zofran) MEDICATION WASTE Product Size: 4 mg Product Wasted: ___ mg No Longer Active 12/03/2015 [facility] Meperidine 12.5 mg, 0.25 mL, Route: IVP, Drug form: INJ, Q30Min, Dosing Weight 121.364, kg, PRN Other -See Comment, For shivering, Start date: 12/03/15 9:35:00 CDT, Duration: 2 doses or times, Stop date: Limited # of timesNotes: (Same as: Demerol) "Use Precaution in Elderly, Seizure disorders, and Renal impairment" No Longer Active 12/03/2015 [facility] Flumazenil 0.2 mg, 2 mL, Route: IVP, Drug form: INJ, PRN, Dosing Weight 121.364, kg, PRN Benzodiazepine Reversal, Initial dose, Start date: 12/03/15 9:35:00 CDT, Duration: 30 day, Stop date: 01/02/16 8:34:00 CS TNotes: (Same as: Romazicon) No Longer Active 12/03/2015 [facility] Naloxone 0.4 mg, 1 mL, Route: IVP, Drug form: INJ, Q2MIN, Dosing Weight 121.364, kg, PRN Narcotic Reversal, Start date: 12/03/15 9:35:00 CDT, Duration: 8 doses or times, Stop date: Limited # of timesNotes: Same as Narcan No Longer Active 12/03/2015 [facility] Hydromorphone 0.5 mg, 0.25 mL, Route: IVP, Drug form: INJ, Q5Min, Dosing Weight 121.364, kg, PRN Pain Score 7-10, Start date: 12/03/15 9:35:00 CDT, Duration: 4 doses or times, Stop date: 12/04/15 0:00:00 CDTNotes: Same as Dilaudid No Longer Active 12/03/2015 [facility] ropivacaine 100 mL, Route: InFILtration(local), Drug Form: INJ, ONCE, Start date: 12/03/15 6:51:00 CDT, Stop date: 12/03/15 6:51:00 CDTNotes: NOT FOR IV use Ropivacaine 5 mg/mL (49.25 mL) Epinephrine 1 m g/mL (0.5 mL) Clonidine 0.1 mg/mL (0.8 mL) Ketorolac 30 mg/mL (1 mL) Normal Saline 48.45 mL Inactive 12/03/2015 [facility] Vancomycin 1.75 gm, Route: IV, ONCE, Dosing Weight 120.455, kg, Start date: 12/03/15 6:17:00 CDT, Stop date: 12/03/15 6:17:00 CDTNotes: TIME CRITICAL MEDICATION (Same As: Vancocin) Infusion rate 2001 mg: infuse over 2.5 hours MEDICATION WASTE Product Size: 1000 mg Product Wasted: ___ mg Inactive 12/03/2015 [facility] Lactated Ringers 1,000 mL 1,000 mL, Rate: 100 ml/hr, Infuse over: 10 hr, Route: IV, Dosing Weight 120.455 kg, Total Volume: 1,000, Start date: 12/03/15 6:06:00 CDT, Duration: 30 day, Stop date: 01/02/16 6:05:00 [employer] No Longer Active 12/03/2015 [facility] 0.6 ML Enoxaparin sodium 100 MG/ML Prefilled Syringe [Lovenox] 60 mg, SUB-Q, Daily, Started 11-27-15 thru 12-02-15, am., # 14 syr, 0 Refill(s) On Hold 11/30/2015 [facility] Home Medication PO, Daily, Vitamin D3, fish oil, Vitamin B12 & multi-vitamin, Refill(s) 0 No Longer Active 11/25/2015 [facility] niacin 500 mg oral capsule 1,000 mg=2 cap, PO, Bedtime, 0 Refill(s) No Longer Active 11/25/2015 [facility] clopidogrel 75 mg oral tablet 75 mg=1 tab, PO, Daily, # 30 tab, 0 Refill(s) No Longer Active 11/25/2015 [facility] ramipril 10 mg oral capsule See Instructions, 1 cap PO Daily 30 day, 0 Refill(s) Active 11/25/2015 [facility] 24 HR Metformin hydrochloride 500 MG Extended Release Tablet 500 mg=1 tab, PO, BID-Meals, # 60 tab, 1 Refill(s) Active 11/25/2015 [facility] atorvastatin 80 mg oral tablet 80 mg=1 tab, PO, Bedtime, # 30 tab, 0 Refill(s) Active 11/25/2015 [facility] Glipizide 10 MG Oral Tablet 5 mg=0.5 tab, PO, BID, 0 Refill(s) Active 11/25/2015 [facility] Hydrochlorothiazide See Instructions, 25 mg PO QOD., 0 Refill(s) Active 11/25/2015 [facility] Sotalol Hydrochloride AF 80 mg oral tablet See Instructions, 1/2 tab PO BID Take DOS, 0 Refill(s) Active 11/25/2015 [facility] sitagliptin 100 MG Oral Tablet [Januvia] See Instructions, 1/2 tab PO Daily, 0 Refill(s) Active 11/25/2015 [facility] Allergies, Adverse Reactions, Alerts Substance Category Reaction Severity Reaction type Status Date Reported Comments Source codeine Assertion Drug allergy Active [facility] [place] Immunizations Immunization Date Given Site Status Last Updated Comments Source Results Order Name Results Value Reference Range Date Interpretation Comments Source Spine lumbar wo contrast MRI Spine lumbar wo contrast MRI EXAM: MRI LUMBAR SPINE WITHOUT CONTRAST DATE: 01/27/2017 5:14 PM [employer]ERK . ORDERING PHYSICIAN: Uziel Fuller MD CLINICAL INDICATION: M54.16 Radiculopathy, lumbar region - M54.16 Radiculopathy, lumbar region; TECHNIQUE: Multiplanar, multisequence MRI lumbar spine without IV contrast COMPARISON: Unavailable FINDINGS: For the purposes of enumeration, the lowest well formed intervertebral disc was counted as L5-S1 on this exam. INTRASPINAL CONTENTS/CONUS: The conus terminates at L1-L2. No definite dural based lesion. VERTEBRAE: The vertebrae are normal in height. There is mostly rightward convex lumbar curvature with apex L3-4 and 11 degrees of angulation.. No focal suspicious bone marrow signal abnormality. PARASPINAL SOFT TISSUES: Multiple renal cysts are present. Postoperative changes. DISC SPACES, SPINAL CANAL, AND NEURAL FORAMINA: The lumbar pedicles are short. T12-L1. Disc is dehydrated without height loss or substantial annular bulge. There is mild facet hypertrophy. Central canal measures 11 mm lateral recesses and neural foramina are patent. L1-L2. Disc is dehydrated with small diffuse bulge and central zone annular fissuring. There is mild facet hypertrophy. Central canal measures 9 mm. Lateral recesses are patent. There is mild narrowing of the neural foramina with no mass effect on the L1 nerve root. L2-L3. Loss of disc height with moderate diffuse bulge. There is left greater than right facet hypertrophy. Central canal measures 5 mm with crowded cauda equina. Left lateral recess is narrowed with disc and facets crowding the L3 nerve root. There is moderate narrowing of the neural foramina with no compression of the exiting L2 nerve roots. L3-L4. Loss of disc height with circumferential disc osteophyte complex. This facet hypertrophy with ligamentous redundancy. Central canal measures 6 mm. Left lateral recess is narrowed with disc and facets crowding the L4 nerve root. There is severe narrowing of the neural foramina, left greater than right. L4-L5. Loss of disc height with circumferential disc osteophyte complex and superimposed 6 mm right subarticular zone protrusion/extrusion. This facet hypertrophy. Patient as undergone posterior decompression. Central canal measures 12 mm AP. The right lateral recess is narrowed with disc protrusion/extrusion dorsally displacing the right descending L5 and S1 nerve roots. There is moderate to severe narrowing of the left neural foramen and mild narrowing of the right. The left exiting nerve root is slightly remodeled by the disc and by facets. L5-S1. Disc is dehydrated without height loss. There is a small osteophyte complex. This bilateral facet hypertrophy. Patient as undergone posterior decompression. Central canal measures 11 mm lateral recesses are mildly narrowed without S1 nerve root. There is czkc-oz-hligaufb narrowing of the left neural foramen. IMPRESSION: 1. 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 The more substantial stenosis is at L2-3. 2. Right L4-5 protrusion/extrusion narrowing the right lateral recess causing mass effect on the right descending L5 and S1 nerve roots 3. Severe L3-4 neural foramen narrowing, left greater the right. Moderate to severe left L4-5 neural foramen narrowing. 01/27/2017 - - Read by: Art Shirley MD Dictated Date/time: 01/28/17 11:31 Electronically Signed by: Art Shirley MD 01/28/17 11:37 FINAL REPORT [facility] Hip bilat w pelvis and both lat hips DX Hip bilat w pelvis and both lat hips DX EXAM: XR BILATERAL HIP 2 VIEWS AND AP PELVIS DATE: 01/11/2017 9:55 AM [employer] IN[employer] CLERK INDICATION: pain in right hip - xr COMPARISON: None TECHNIQUE: Mcgrath and false profile views views of the bilateral hips and a single AP view of the pelvis. DISCUSSION: No acute fracture or malalignment is identified. Mild left and moderate right-sided narrowing at the superolateral hip joint. Moderate right acetabular marginal osteophyte. Normal sphericity of the femoral heads. Mild pelvic enthesopathy. No soft tissue abnormality is identified. IMPRESSION: 1. Mild to moderate right hip osteoarthrosis. 2. Normal exam of the left hip. 01/11/2017 - - Read by: Anders Goodman MD Dictated Date/time: 01/11/17 16:20 Electronically Signed by: Anders Goodman MD 01/11/17 16:22 FINAL REPORT [facility] Spine lumbar series DX Spine lumbar series DX EXAM: XR LUMBAR SPINE 5 VIEWS DATE: 01/11/2017 9:52 AM [employer] CLERK INDICATION: radiculopathy, lumbar region - dx lumbar COMPARISON: None TECHNIQUE: AP, lateral, coned lateral, LPO and RPO radiographs of the lumbar spine DISCUSSION: 5 nonrib bearing, lumbar-type vertebral bodies are present. Mild scoliosis of the lumbar spine. Laminectomy at L5. Vertebral body heights are maintained. No subluxation of the lumbar spine. There is disc height loss and moderate osteophyte formation throughout the lumbar spine, greatest along inner curvature of scoliosis. Severe facet arthropathy of the lower lumbar spine. Small osteophytes of the sacroiliac joints. Moderate arterial calcification. IMPRESSION: 1. Mild scoliosis of the lumbar spine. 2. Moderate degenerative disc disease throughout the lumbar spine, greatest along inner curvature of scoliosis. 3. Severe facet arthropathy of the lower lumbar spine. 01/11/2017 - - Read by: Anders Goodman MD Dictated Date/time: 01/11/17 16:15 Electronically Signed by: Anders Goodman MD 01/11/17 16:17 FINAL REPORT [facility] BLOOD BANK RESULTS Antibody Scrn Negative (11/30/15 10:10 AM) 11/30/2015 [facility] BLOOD BANK RESULTS ABO/Rh O POS 11/30/2015 [facility] CHEM PANEL eGFR 52 mL/min/1.73m2 11/30/2015 Result Comment: The eGFR is calculated using the [...] from the National Kid[employer] Disease Education Program (NKDEP) which additionally recommends that when the eGFR is used in patients with extremes of body mass index for purposes of drug dosing, the eGFR should be multiplied by the estimated BMI. [facility] CHEM PANEL ALANINE AMINOTRANSFERASE 46 unit/L 0 - 65 11/30/2015 [facility] CHEM PANEL Bili Total 0.7 mg/dL 0.2 - 1.3 11/30/2015 [facility] CHEM PANEL ASPARTATE TRANSAMINASE 32 unit/L 0 - 37 11/30/2015 [facility] CHEM PANEL Alk Phos 61 unit/L 39 - 136 11/30/2015 [facility] CHEM PANEL Albumin Lvl 3.2 g/dL 3.5 - 5.0 11/30/2015 [facility] CHEM PANEL Total Protein 6.6 g/dL 6.4 - 8.4 11/30/2015 [facility] CHEM PANEL Calcium Lvl 8.7 mg/dL 8.5 - 10.5 11/30/2015 [facility] CHEM PANEL CO2 34 meq/L 24 - 32 11/30/2015 [facility] CHEM PANEL Chloride Lvl 105 meq/L 95 - 109 11/30/2015 [facility] CHEM PANEL Sodium Lvl 142 meq/L 135 - 145 11/30/2015 [facility] CHEM PANEL Potassium Lvl 4.8 meq/L 3.5 - 5.1 11/30/2015 [facility] CHEM PANEL Glucose Lvl 159 mg/dL 70 - 99 11/30/2015 [facility] CHEM PANEL BUN 16 mg/dL 7 - 22 11/30/2015 [facility] CHEM PANEL Creatinine Lvl 1.31 mg/dL 0.50 - 1.40 11/30/2015 [facility] CHEM PANEL A/G Ratio 0.9 0.7 - 1.6 11/30/2015 [facility] CHEM PANEL B/C Ratio 12 6 - 25 11/30/2015 [facility] CHEM PANEL Globulin 3.4 g/dL 2.7 - 4.2 11/30/2015 [facility] CHEM PANEL AGAP 7.8 meq/L 10.0 - 20.0 11/30/2015 [facility] HEMATOLOGY aPTT 34.2 s 22.9 - 35.8 11/30/2015 [facility] HEMATOLOGY PROTIME 13.1 s 12.0 - 14.7 11/30/2015 [facility] HEMATOLOGY INR 0.97 0.85 - 1.17 11/30/2015 [facility] HEMATOLOGY Platelet 203 K/CMM 133 - 450 11/30/2015 [facility] HEMATOLOGY MPV 8.7 fL 7.4 - 10.4 11/30/2015 [facility] HEMATOLOGY Hct 50.9 % 42.0 - 54.0 11/30/2015 [facility] HEMATOLOGY MCHC 33.3 g/dL 32.0 - 36.0 11/30/2015 [facility] HEMATOLOGY MCH 30.3 pg 27.0 - 31.0 11/30/2015 [facility] HEMATOLOGY MCV 91.0 fL 80.0 - 94.0 11/30/2015 [facility] HEMATOLOGY RDW 13.7 % 11.5 - 14.5 11/30/2015 [facility] HEMATOLOGY RBC 5.59 M/CMM 4.70 - 6.10 11/30/2015 [facility] HEMATOLOGY WBC 7.6 K/CMM 3.7 - 10.4 11/30/2015 [facility] HEMATOLOGY Hgb 16.9 g/dL 14.0 - 18.0 11/30/2015 [facility] HEMATOLOGY Lymphocytes # 1.5 K/CMM 1.0 - 5.5 11/30/2015 [facility] HEMATOLOGY Monocytes # 0.7 K/CMM 0.0 - 0.8 11/30/2015 [facility] HEMATOLOGY Segs-Bands # 5.0 K/CMM 1.5 - 8.1 11/30/2015 [facility] HEMATOLOGY Basophils 0.8 % 0.0 - 1.0 11/30/2015 [facility] HEMATOLOGY Eosinophils # 0.3 K/CMM 0.0 - 0.5 11/30/2015 [facility] HEMATOLOGY Basophils # 0.1 K/CMM 0.0 - 0.2 11/30/2015 [facility] HEMATOLOGY Eosinophils 3.5 % 0.0 - 4.0 11/30/2015 [facility] HEMATOLOGY Monocytes 9.7 % 2.0 - 12.0 11/30/2015 [facility] HEMATOLOGY Segs 65.9 % 45.0 - 75.0 11/30/2015 [facility] HEMATOLOGY Lymphocytes 20.1 % 20.0 - 40.0 11/30/2015 [facility] SPECIAL CHEMISTRY Hgb A1C 6.5 % <=5.6 % 11/30/2015 [facility] Shoulder wo contrast MRI Shoulder wo contrast MRI CLINICAL HISTORY: M25.512 Pain in left shoulder AGE: 75 years GENDER: Male TECHNIQUE: Multiplanar, multisequence MRI of the leftshoulder was performed without gadolinium based contrast. COMPARISON: None FINDINGS: Bone marrow signal is within normal limits. There is no evidence of fracture or malalignment. There is a type II acromion. There is severe degenerative change of the acromioclavicular joint. There is moderate acromioclavicular inferior spurring. There is no evidence of os acromiale. There is a [id number] amount of fluid in the subacromial/subdeltoid bursa. There is severe tendinosis of the supraspinous tendon with moderate thinning of the distal footplate. Severe tendinosis is also noted in the infraspinatus tendon with a high-grade interstitial tear of the footplate and critical zone of the infraspinatus tendon. This measures 17 mm and critical dimension. There is resultant severe thinning of the undersurface fibers of the infraspinatus tendon. There is severe tendinosis of the cranial subscapularis tendon no discrete evidence of tear. The teres minor is unremarkable. There is severe tendinosis of the long head of the biceps tendon is intra- articular portion. The biceps tendon is visualized to level of the anchor. There is a small minimal joint effusion. A moderate amount fluid is seen surrounding the biceps tendon compatible with tenosynovitis.. Within the limits of this nonarthrographic examination, there is mild reactive marrow change in the posterior inferior glenoid with intermediate signal in the posterior inferior labrum suggesting degenerative labral tearing there is underlying moderate, diffuse labral diminution suggesting mild labral degeneration. The inferior glenohumeral ligament is unremarkable.. The axilla and visualized portions of the hemithorax are unremarkable. IMPRESSION: Severe tendinosis of the infraspinatus tendon with high-grade interstitial tearing of the footplate and critical zone measuring 17 mm in AP dimension. Given the presence of a moderate amount of fluid in the subacromial/subdeltoid bursa, the possibility of occult full-thickness tearing is raised. If clinically indicated, further evaluation with MR arthrography may be considered. Severe tendinosis of the supraspinatus tendon with moderate thinning of the distal footplate. No discrete tear is identified. Severe tendinosis of the subscapularis tendon. Severe tendinosis of the long head of the biceps tendon in its intra-articular portion. There is tenosynovitis of the long head of biceps tendon sheath. Mild diminution of the labrum diffusely compatible labrum degeneration. There is suspected superimposed nondisplaced labral tearing in the posterior, inferior quadrant. Severe osteoarthritis of the acromioclavicular joint. 09/17/2015 - - Read by: Uziel Oquendo MD Dictated Date/time: 09/17/15 10:29 Electronically Signed by: Uziel Oquendo MD 09/17/15 11:17 FINAL REPORT [facility] Shoulder wo contrast MRI Shoulder wo contrast MRI CLINICAL HISTORY: M25.511 Pain in right shoulder AGE: 75 years GENDER: Male TECHNIQUE: Multiplanar, multisequence MRI of the rightshoulder was performed without gadolinium based contrast. COMPARISON: None FINDINGS: Bone marrow signal is within normal limits. There is no evidence of fracture or malalignment. There is a type II acromion. There is moderate degenerative change of the acromioclavicular joint. There is moderate acromioclavicular inferior spurring. There is no evidence of os acromiale. There is severe narrowing of the acromial humeral distance. There is a moderate amount of fluid in the subacromial/subdeltoid bursa. There is complete, full-thickness tearing of the supraspinatus and infraspinatus tendons. The myotendinous junctions are retracted to the level of the glenohumeral joint. There is mild to moderate fatty atrophy of the interspinous and supraspinatus muscle bellies. There is superimposed low-grade interstitial tearing of the interspinous tendon at the myotendinous junction. There is severe tendinosis of the subscapularis tendon with moderate thinning of the cranial fibers of the subscapularis tendon. The teres minor tendon demonstrates moderate tendinosis superiorly. The long head of the biceps tendon is markedly thinned in its intra-articular portion and visualized to level of the anchor.. There is a moderate glenohumeral joint effusion. There is degenerative tearing of the labrum superiorly with marked diminution of the superior labrum. No discrete paralabral cyst formation is seen. The inferior glenohumeral ligament is unremarkable.. The axilla and visualized portions of the hemithorax are unremarkable. 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 The myotendinous junctions are retracted to the glenohumeral joint. There is mild to moderate fatty atrophy of the muscle bellies of the interspinous and supraspinous. Severe tendinosis of the subscapularis tendon with moderate thinning of the cranial fibers. Moderate tendinosis of the superior teres minor tendon. Marked thinning of the intra-articular portion of the long head of the biceps tendon. Degenerative tearing of the superior labrum. Moderate glenohumeral joint effusion. Moderate osteoarthritis of the acromioclavicular joint with moderate inferior spurring. 09/17/2015 - - Read by: Uziel Oquendo MD Dictated Date/time: 09/17/15 10:25 Electronically Signed by: Uziel Oquendo MD 09/17/15 10:55 FINAL REPORT LIZETH [place] Chest 2 views DX Chest 2 views DX CHEST PA AND LATERAL History: 75-year-old male with cough Comparison: 02/17/2014 Findings: Lungs: The right hemidiaphragm is elevated, stable. The lungs are expanded partial without an infiltrate, consolidation or nodule. Pleura: No pleural effusion. Mediastinum and richar: Unremarkable. Heart size: Normal. Skeletal: Unremarkable. IMPRESSION: There is no acute cardio pulmonary abnormality. Elevated right hemidiaphragm, stable chest x-ray. 07/17/2015 - - Read by: Cruz García MD Dictated Date/time: 07/17/15 10:12 Electronically Signed by: Cruz García 07/17/15 10:13 FINAL REPORT [facility] [place] Vital Signs Vital Sign Value Date Comments Source Systolic (mm Hg) 128 12/03/2015 [facility] Diastolic (mm Hg) 68 12/03/2015 [facility] Respitory Rate 16 12/03/2015 [facility] Systolic (mm Hg) 134 12/03/2015 [facility] Diastolic (mm Hg) 80 12/03/2015 [facility] Respitory Rate 16 12/03/2015 [facility] Systolic (mm Hg) 129 12/03/2015 [facility] Diastolic (mm Hg) 73 12/03/2015 [facility] Respitory Rate 15 12/03/2015 [facility] Heart Rate 59 12/03/2015 [facility] Heart Rate 61 12/03/2015 [facility] Heart Rate 60 12/03/2015 [facility] BMI Calculated 37.32 12/03/2015 [facility] Weight 121.364 12/03/2015 [facility] Height 180.34 cm 12/03/2015 [facility] Temperature Oral (F) 98.2 F 12/03/2015 [facility] Temperature Oral (F) 96.9 F 12/01/2015 [facility] Encounters Location Location Details Encounter Type Encounter Number Reason For Visit Attending Provider ADM Date DC Date Status Source [facility] [place] [facility] Patients [id number] Jose Samayoa 09/17/2014 10/17/2014 [facility] [place] [facility] [place] [facility] [id number] Jose Samayoa 07/17/2015 07/18/2015 [facility] [place] [facility] [place] [facility] [id number] Filiberto Bridges 09/17/2015 09/18/2015 [facility] [place] [facility] Day Surgery [id number] Filiberto Fullick 12/03/2015 12/04/2015 [facility] OP Therapy Patients [id number] Filiberto Fullick 01/22/2016 02/21/2016 [facility] OP Therapy Patients [id number] Filiberto Fullick 02/24/2016 03/25/2016 [facility] OP Therapy Patients [id number] Filiberto Fullick 03/25/2016 04/24/2016 [facility] OP Therapy Patients [id number] Filiberto Fullick 04/27/2016 05/27/2016 [facility] OP Therapy Patients [id number] Adam Tyler 09/26/2016 10/26/2016 [facility] Outpatient [id number] Uziel Fuller 01/11/2017 01/12/2017 [facility] [place] [facility] [id number] Uziel Fuller 01/27/2017 01/28/2017 [facility] [place] Procedures Procedure Code Date Perfomer Comments Source Arthroscopy of shoulder [id number] 12/03/2015 [facility] Arthroscopy of shoulder [id number] 12/03/2015 [facility] Arthroscopy of shoulder [id number] 12/03/2015 [facility] [place] Hemorrhoidectomy [id number] 09/21/2015 [facility] Hemorrhoidectomy [id number] 09/21/2015 [facility] Hemorrhoidectomy [id number] 09/21/2015 [facility] [place] Placement of stent<sup>1, 2</sup> [id number] 02/20/2014 stents x 94903 x 2 stents 2013 x 1stent [facility] Placement of stent<sup>1, 2</sup> [id number] 02/20/2014 stents x 92173 x 2 stents 2013 x 1stent [facility] Placement of stent<sup>1, 2</sup> [id number] 02/20/2014 stents x 70868 x 2 stents 2013 x 1stent [facility] [place] Corneal transplant [id number] 02/20/2010 [facility] Corneal transplant [id number] 02/20/2010 [facility] Corneal transplant [id number] 02/20/2010 [facility] [place] Angioplasty [id number] [facility] [place] Lumbar discectomy<sup>3</sup> 294320983 x 2 [facility] [place] Procedure [id number] [facility] [place] Angioplasty [id number] [facility] Lumbar discectomy<sup>3</sup> 892561430 x 2 [facility] Procedure [id number] [facility] Angioplasty [id number] [facility] [place] Lumbar discectomy<sup>3</sup> 823972108 x 2 [facility] [place] Procedure [id number] [facility] [place]
--- OUTSIDE RECORDS SUMMARY | 2017-12-19 07:13 | XMS REPORT | Summary of Care ---
Author Author [facility] [place] Organization [facility] [place] Address Unknown Phone Unavailable Encounter HQ Encntr_alias(FIN) [id number] Date(s): 09/17/15 - 09/17/15 [facility] [place] [address] [place] [address] [phone] Discharge Disposition: Home or Self Care Attending Physician: Filiberto Bridges MD Vital Signs No data available for [...]
--- OUTSIDE RECORDS SUMMARY | 2017-12-19 07:13 | XMS REPORT | Summary of Care ---
Author Author [facility] [place] Organization [facility] [place] Address Unknown Phone Unavailable Encounter HQ Encntr_alias(FIN) [id number] Date(s): 07/17/15 - 07/17/15 [facility] [place] [address] [place], [place] [address] [phone] Discharge Disposition: Home Attending Physician: Jose Samayoa MD Vital Signs No [...]
--- OUTSIDE RECORDS SUMMARY | 2017-12-19 07:14 | XMS REPORT | Summary of Care ---
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 Exercise Exercise duration: 0. Alcohol Never, Previous treatment: None. Smoking Status Never smoker; Exposure to Tobacco Smoke None; Cigarette Smoking Last 365 Days No; Reg Smoking Cessation Counseling No Assessment and Plan No data available for this section
--- OUTSIDE RECORDS SUMMARY | 2017-12-19 07:14 | XMS REPORT | Summary of Care ---
Author Author [facility] [place] Organization [facility] [place] Address Unknown Phone Unavailable Encounter KATI Price(FIN) [id number] Date(s): 01/27/17 - 01/27/17 [facility] [place] [address] [address]- [phone] Discharge Disposition: Home or Self Care Attending Physician: Uziel Fuller MD Vital Signs No data available for [...] Angioplasty Lumbar discectomy3 Procedure 1stents x 3 29661 x 2 stents 2013 x 1stent 3x 2 Social History Social History Type Response Substance Abuse Use: None. Exercise Exercise duration: 0. Alcohol Never, Previous treatment: None. Smoking Status Never smoker; Exposure to Tobacco Smoke None; Cigarette Smoking Last 365 Days No; Reg Smoking Cessation Counseling No Assessment and Plan No data available for this section
--- OUTSIDE RECORDS SUMMARY | 2017-12-19 07:14 | XMS REPORT | Summary of Care ---
Author Author [facility] Address Unknown Phone Unavailable Encounter HQ Afia_brody(FIN) [id number] Date(s): 09/26/16 - 10/25/16 [facility] Discharge Disposition: Home or Self Care Attending Physician: Adam Scott MD Vital Signs No data available for [...] Angioplasty Lumbar discectomy3 Procedure 1stents x 3 70778 x 2 stents 2013 x 1stent 3x 2 Social History Social History Type Response Substance Abuse Use: None. Exercise Exercise duration: 0. Alcohol Never, Previous treatment: None. Smoking Status Never smoker; Exposure to Tobacco Smoke None; Cigarette Smoking Last 365 Days No; Reg Smoking Cessation Counseling No Assessment and Plan No data available for this section
--- OUTSIDE RECORDS SUMMARY | 2017-12-19 07:14 | XMS REPORT | Summary of Care ---
Author Author [facility] Address Unknown Phone Unavailable Encounter KATI Price(FIN) [id number] Date(s): 04/27/16 - 05/26/16 [facility] Discharge Disposition: Home or Self [...] Angioplasty Lumbar discectomy3 Procedure 1stents x 3 20449 x 2 stents 2013 x 1stent 3x 2 Social History Social History Type Response Substance Abuse Use: None. Exercise Exercise duration: 0. Alcohol Never, Previous treatment: None. Smoking Status Never smoker; Exposure to Tobacco Smoke None; Cigarette Smoking Last 365 Days No; Reg Smoking Cessation Counseling No Assessment and Plan No data available for this section
--- OUTSIDE RECORDS SUMMARY | 2017-12-19 07:14 | XMS REPORT | Summary of Care ---
Author Author [facility] Address Unknown Phone Unavailable Encounter HQ Dee(FIN) [id number] Date(s): 03/25/16 - 04/23/16 [facility] Discharge Disposition: Home or Self Care Attending [...] Angioplasty Lumbar discectomy3 Procedure 1stents x 3 72955 x 2 stents 2013 x 1stent 3x 2 Social History Social History Type Response Substance Abuse Use: None. Exercise Exercise duration: 0. Alcohol Never, Previous treatment: None. Smoking Status Never smoker; Exposure to Tobacco Smoke None; Cigarette Smoking Last 365 Days No; Reg Smoking Cessation Counseling No Assessment and Plan No data available for this section
--- OUTSIDE RECORDS SUMMARY | 2017-12-19 07:14 | XMS REPORT | Summary of Care ---
Author Author [facility] Orthopedic [facility] Organization [facility] Address Unknown Phone Unavailable Encounter KATI Price(CHARU) [id number] Date(s): 01/11/17 - 01/11/17 [facility] Spine [address] [address]- [phone] Discharge Disposition: Home or Self Care Attending [...] Angioplasty Lumbar discectomy3 Procedure 1stents x 3 32828 x 2 stents 2013 x 1stent 3x 2 Social History Social History Type Response Substance Abuse Use: None. Exercise Exercise duration: 0. Alcohol Never, Previous treatment: None. Smoking Status Never smoker; Exposure to Tobacco Smoke None; Cigarette Smoking Last 365 Days No; Reg Smoking Cessation Counseling No Assessment and Plan No data available for this section
--- OUTSIDE RECORDS SUMMARY | 2017-12-19 07:14 | XMS REPORT | Summary of Care ---
Author Author PANKAJ SQUIRES M.D., LARRY Benavidez Unknown Address [facility] Phone Unavailable Care Team Providers Care Gmat Tutor Name Role Phone IFTIKHAR Bledsoe, GISELE Unavailable Unavailable PANKAJ SQUIRES M.D., LARRY Unavailable Unavailable IFTIKHAR TINSLEY [place], GISELE Unavailable Unavailable Unavailable Unavailable Functional Status Name Dates Details Functional status health issues are not documented Status: Name Dates Details Cognitive status health issues are not documented Status: Problems Name Dates Details Atrial fibrillation (427.31, I48.91) Status: Active Coronary artery disease (414.00, I25.10) Status: Active Obstructive sleep apnea (327.23, G47.33) Status: Active Fatigue (780.79, R53.83) Status: Active Need for influenza vaccination (V04.81, Z23) Status: Active Left knee pain (719.46, M25.562) Status: Active Post-operative state (V45.89, Z98.890) Status: Active Erythrocytosis (289.0, D75.1) Status: Active Pain in right shoulder (719.41, M25.511) Status: Active Lumbar radiculopathy, acute (724.4, M54.16) Status: Active Acute hip pain, right (719.45, M25.551) Status: Active Diabetes mellitus with peripheral circulatory disorder (250.70, E11.51) Status: Active Essential (primary) hypertension (401.9, I10) Status: Active Mixed hyperlipidemia (272.2, E78.2) Status: Active Vitamin B12 deficiency (266.2, E53.8) Status: Active Vitamin D deficiency (268.9, E55.9) Status: Active Lumbar radiculopathy, chronic (724.4, M54.16) Status: Active Need for pneumococcal vaccination (V03.82, Z23) Status: Active Primary osteoarthritis of both knees (715.16, M17.0) Status: Active Medications Name Dates Details Januvia 100 MG Oral Tablet TAKE ONE TABLET BY MOUTH ONCE DAILY Quantity: 90 IFTIKHAR Wall.Demarcus, GISELE * Start : 13-Nov-2017 Active GlipiZIDE 5 MG Oral Tablet TAKE ONE TABLET BY MOUTH IN THE MORNING WITH FOOD AND ONE TABLET IN THE EVENING WITH FOOD. * Quantity: 180 Refills: 0 IFTIKHAR Bledsoe, GISELE * Start : 29-Sep-2017 Active MetFORMIN HCl ER 500 MG Oral Tablet Extended Release 24 Hour TAKE 1 TABLET BY MOUTH DAILY Start 09-27-17 * Quantity: 180 Refills: 0 IFTIKHAR Wall.GISELE Tracy * Start : 28-Jan-2012 Active Niacin ER 500 MG Oral Capsule Extended Release TAKE 2 CAPSULE AT BEDTIME. (May give NIASPAN 500) Per Dr Hurst * Refills: 1 IFTIKHAR Wall.GISELE Tracy * Start : 28-Jan-2012 Active Atorvastatin Calcium 80 MG Oral Tablet TAKE 1 TABLET BY MOUTH AT BEDTIME * Quantity: 90 Refills: 0 IFTIKHAR Wall.GISELE Tracy * Start : 13-Nov-2017 Active Ramipril 10 MG Oral Capsule TAKE 1 CAPSULE BY MOUTH ONCE DAILY * Quantity: 90 Refills: 0 IFTIKHAR Wall.GISELE Tracy * Start : 01-Nov-2017 Active HydroCHLOROthiazide 25 MG Oral Tablet TAKE 1/2 (ONE-HALF) TABLET BY MOUTH ONCE DAILY * Quantity: 45 Refills: 0 IFTIKHAR Wall.GISELE Tracy * Start : 13-Nov-2017 Active Fish Oil 1000 MG Oral Capsule TAKE 1 CAPSULE DAILY. * Refills: 0 GISELE BUITRAGO M.D. * Start : 28-Jan-2012 Active Centrum Silver Ultra Mens Oral Tablet 1 a day * Refills: 0 GISELE BUITRAGO M.D. * Start : 28-Jan-2012 Active Vitamin B-12 500 MCG Oral Tablet TAKE 1 TABLET DAILY. * Refills: 0 IFTIKHAR Wall.GISELE Tracy * Start : 28-Jan-2012 Active Vitamin D 2000 UNIT Oral Capsule 1 a day * Refills: 0 IFTIKHAR Wall.GISELE Tracy * Start : 28-Jan-2012 Active Sotalol HCl - 80 MG Oral Tablet * Refills: 0 IFTIKHARGISELE Arevalo M.D. * Start : 10-Feb-2012 Active Clopidogrel Bisulfate 75 MG Oral Tablet * Refills: 0 GISELE BUITRAGO M.D. Start : 02-Jan-2014 Active HumuLIN N KwikPen 100 UNIT/ML Subcutaneous Suspension Pen-injector Inject 2 unit for every 4 mg tablet of methylprednisone (to be taken at the neisha e time ) * Quantity: 5 Refills: 2 GISELE BUITRAGO M.D. Start : 06-Nov-2014 Active 3 ML Pen Accu-Chek Guide In Vitro Strip CHECK 3 TIMES DAILY * Quantity: 2 Refills: 11 GISELE BUITRAGO M.D. * Start : 14-Nov-2014 Active 50 Strip Bottle Accu-Chek FastClix Lancets 3x a day for blood sugar monitoring. * Quantity: 1 Refills: 11 GISELE BUITRAGO M.D. 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 (562.10, K57.30) Status: Resolved History of hiatal hernia (V12.79, Z87.19) Status: Resolved History of renal calculi (V13.01, Z87.442) Status: Resolved Procedures Procedure Dates Details History of Back Surgery Completed History of Elbow Surgery Completed History of PTCA Completed History of PTCA Completed History of Hemorrhoidectomy Completed History of Shoulder Surgery Completed Immunization Name Dates Details Influenza Lot #: [id number] on: 02-Jan-2014 Fluzone High-Dose 0.5 ML Intramuscular Suspension Prefilled Syringe Lot #: [id number] on: 21-Mar-2017 Fluzone High-Dose 0.5 ML Intramuscular Suspension Prefilled Syringe Lot #: [id number] on: 10-Nov-2017 Prevnar 13 Intramuscular Suspension Lot #: [id number] on: 10-Nov-2017 Family History Name Dates Details Family history of Diabetes Mellitus (V18.0) Comments: Family History Status: Active Family history of Coronary Artery Disease Comments: Family History Status: Active Name Dates Details Family history of Diabetes Mellitus (V18.0) Status: Active Name Dates Details Family history of Diabetes Mellitus (V18.0) Status: Active Name Dates Details Family history of Diabetes Mellitus (V18.0) Status: Active Name Dates Details Family history of Diabetes Mellitus (V18.0) Status: Active Family history of Coronary Artery Disease Status: Active Social History Name Dates Details - Status: Name Dates Details Never smoker Vital Signs Date Test Result Details No Known Vitals to report Results Date Description Value Details [id number] [U] XRAY KNEE 3 VWS RIGHT 46553 XR KNEE 3 VWS RIGHT Images acquired, not reported on this accession number. Plan of Care Name Dates Details Planned Observations Planned Goals not documented Planned Encounters Physical Therapy Referral Ortho Appointment; TORREY CEJA M.D. On: 14-Dec-2017 14:30 Appointment; GISELE BUITRAGO M.D. On: 10-Jan-2018 9:00 Interventions Provided Labs/Procedures/Imaging* [U] XRAY KNEE 3 VWS RIGHT 36579; Done: 12 Dec 2017 Plan* Completed at Today's Appointment: * Injection * Patient Education/Instructions: * Patient Education Provided * Reassurance * Orders: * Physical Therapy * Medications: * Instructions were given to apply topical anti-inflammatory medication only as directed by a physician. Do not take oral NSAIDs while using this medication. * - Take 500mg - 1000mg of acetaminophen (Tylenol) every 4-6 hours as needed for relief of pain, discomfort, or fever. Do NOT take more than 4000mg in a 24 hour period (can cause liver damage in higher doses). * - Tramadol 50mg. Take 1-2 every 4-6 hours as needed for pain. Tramadol is a narcotic pain medication. Use only as directed. Do NOT drive or operate machinery while using this medication. * Follow Up: * Return to the clinic in 4-6 weeks or as needed. * Please schedule a follow-up appointment to have planned injection administered. Instructions Name Dates Details Instructions not documented Encounters Appointment; REJI ARAMBULA P.A. Encounter Diagnosis: Problem not documented On: 25-Dec-2015 12:00 Appointment; DOMONIQUE FAGAN M.D. Encounter Diagnosis: Problem not documented On: 08-Jan-2016 10:15 Appointment; GISELE BUITRAGO M.D. Encounter Diagnosis: Problem not documented On: 08-Jan-2016 13:00 Appointment; REJI ARAMBULA P.A. Encounter Diagnosis: Problem not documented On: 17-Feb-2016 9:15 Appointment; DOMONIQUE FAGAN M.D. Encounter Diagnosis: Problem not documented On: 19-Feb-2016 10:00 Appointment; DOMONIQUE FAGAN M.D. Encounter Diagnosis: Problem not documented On: 15-Apr-2016 8:00 Appointment; GISELE BUITRAGO M.D. Encounter Diagnosis: Problem not documented On: 19-Apr-2016 10:30 Appointment; Billy Henry M.D. Encounter Diagnosis: Problem not documented On: 17-May-2016 13:15 Appointment; REJI ARAMBULA P.A. Encounter Diagnosis: Problem not documented On: 18-May-2016 9:15 Appointment; DOMONIQUE FAGAN M.D. Encounter Diagnosis: Problem not documented On: 15-Jul-2016 8:15 Appointment; GISELE BUITRAGO M.D. Encounter Diagnosis: Problem not documented On: 17-Aug-2016 9:30 Appointment; GISELE BUITRAGO M.D. Encounter Diagnosis: Problem not documented On: 08-Dec-2016 9:30 Appointment; DOMONIQUE FAGAN M.D. Encounter Diagnosis: Problem not documented On: 04-Jan-2017 8:15 Appointment; ANGEL MARCIAL M.D. Encounter Diagnosis: Problem not documented On: 11-Jan-2017 8:00 Appointment; ANGEL MARCIAL M.D. Encounter Diagnosis: Problem not documented On: 01-Mar-2017 13:30 Appointment; ANGEL MARCIAL M.D. Encounter Diagnosis: Problem not documented On: 15-Mar-2017 11:00 Appointment; GISELE BUITRAGO M.D. Encounter Diagnosis: Problem not documented On: 21-Mar-2017 10:30 Appointment; ANGEL MARCIAL M.D. Encounter Diagnosis: Problem not documented On: 06-Apr-2017 8:00 Appointment; ANGEL MARCIAL M.D. Encounter Diagnosis: Problem not documented On: 16-May-2017 9:30 Appointment; GISELE BUITRAGO M.D. Encounter Diagnosis: Problem not documented On: 30-Jun-2017 10:00 Appointment; GISELE BUITRAGO M.D. Encounter Diagnosis: Problem not documented On: 26-Sep-2017 11:00 Appointment; SVITLANA COLMENARES M.D. Encounter Diagnosis: Problem not documented On: 10-Nov-2017 13:00 Appointment; LARRY RICHARDS M.D. Encounter Diagnosis: Problem not documented On: 12-Dec-2017 8:45
[2017-12-19] MEDS ORDERED: ASPIRIN 81 MG CHEW TAB PO STA (07:52)
[2017-12-19 08:10] LABS: BASOPHILS # (AUTO) 0.1 (0.0-0.1); BASOPHILS % 0.8 % (0.0-1.0); EOSINOPHILS # (AUTO) 0.4 (0.0-0.4); EOSINOPHILS % 5.1 % (0.0-6.0); HEMATOCRIT 46.7 % (38.2-49.6); HEMOGLOBIN 15.1 g/dL (14.0-18.0); LYMPHOCYTES # (AUTO) 1.8 (1.0-3.2); LYMPHOCYTES % 20.6 % (18.0-39.1); MEAN CORPUSCULAR HEMOGLOBIN 30.3 pg (28-32); MEAN CORPUSCULAR HGB CONC 32.3 g/dL (31-35); MEAN CORPUSCULAR VOLUME 93.8 fL (81-99); MONOCYTES # (AUTO) 0.9 (0.2-0.8); MONOCYTES % 10.7 % (4.4-11.3); NEUTROPHILS # (AUTO) 5.4 (2.1-6.9); NEUTROPHILS % 62.5 % (38.7-80.0); PLATELET COUNT 199 x10e3/uL (140-360); RED BLOOD COUNT 4.98 x10e6/uL (4.3-5.7); RED CELL DISTRIBUTION WIDTH 13.5 % (11.7-14.4)
[2017-12-19 08:15] LABS: INR 0.87; PROTHROMBIN TIME 12.7 seconds (11.9-14.5)
[2017-12-19 08:16] LABS: PARTIAL THROMBOPLASTIN TIME 28.7 seconds (23.8-35.5)
[2017-12-19 08:25] LABS: ALBUMIN 3.4 g/dL (3.5-5.0); ALBUMIN/GLOBULIN RATIO 1.2 (0.8-2.0); ANION GAP 10.4 mmol/L (8-16); CALCIUM 9.2 mg/dL (8.4-10.2); CREATININE, SERUM 1.61 mg/dL (0.72-1.25); MAGNESIUM 2.1 MG/DL (1.3-2.1); POTASSIUM 4.4 mmol/L (3.5-5.1)
[2017-12-19 08:31] LABS: CREATINE KINASE MB 4.6 ng/mL (0-5.0)
--- NOTE | 2017-12-19 08:38 | Diagnostic Imaging Report ---
PROCEDURE: CHEST SINGLE (PORTABLE) COMPARISON: Patients [facility] [place], , CHEST 2 VIEWS, 08/14/2017, 8:53. INDICATIONS: CHEST PAIN CENTER OF CHEST FINDINGS: LUNGS: No consolidations or edema. PLEURA: No effusions or pneumothorax. HEART & MEDIASTINUM: The heart is within normal size-limits. The right hemidiaphragm is elevated. BONES & SOFT TISSUES: No acute findings. AC joint degenerative changes. CONCLUSION: No acute thoracic abnormality. Shorty Vuong D.O. Dictated by: Shorty Vuong D.O. on 12/19/2017 at 8:47 Electronically approved by: Shorty Vuong D.O. on 12/19/2017 at 8:47
[2017-12-19] MEDS ORDERED: DEXTROSE 50% SYRINGE 50 ML IV PRN (09:00)
[2017-12-19] MEDS ORDERED: ONDANSETRON HCL INJ 2 MG/ML VIAL IV PRN (09:00)
[2017-12-19 10:04] LABS: CLARITY,URINE CLEAR (CLEAR); COLOR,URINE YELLOW (YELLOW); KETONES,URINE NEGATIVE (NEGATIVE); LEUKOCYTE ESTERASE ,URINE NEGATIVE (NEGATIVE); NITRITE,URINE NEGATIVE (NEGATIVE); PROTEIN,URINE DIPSTICK NEGATIVE (NEGATIVE)
[2017-12-19 10:05] LABS: BILIRUBIN,URINE NEGATIVE (NEGATIVE); URINE UROBILINOGEN 0.2 mg/dL (0.2 - 1); WBC,URINE (MAN) 0-5 /HPF (0-5)
[2017-12-19 10:06] LABS: EPITHELIAL CELLS,URINE RARE /LPF; RENAL EPITHELIAL CELLS,URINE RARE
[2017-12-19] MEDS: FAMOTIDINE 20 MG/2 ML VIAL IV SCH ×2 (11:14→21:30)
[2017-12-19] MEDS: ASPIRIN 81 MG ENTERIC COATED PO SCH (11:14)
[2017-12-19] MEDS: CLOPIDOGREL BISULFATE 75 MG TAB PO SCH (11:15)
[2017-12-19] MEDS: INSULIN LISPRO 100 UNIT/1 ML 3ML VIAL SQ SCH ×3 (12:29→20:43)
[2017-12-19 16:28] VITALS: BP 128/73
[2017-12-19 16:50] LABS: CREATINE KINASE 107 IU/L (30-200)
[2017-12-19 16:55] VITALS: BP 128/73
[2017-12-19 20:30] VITALS: BP 124/69
[2017-12-19] MEDS: RAMIPRIL 5 MG CAP PO SCH (21:00)
[2017-12-19] MEDS ORDERED: OMEGA 3 POLYUNSAT FATTY ACIDS 1000 MG SOFTGEL PO SCH (21:00)
[2017-12-19 21:30] VITALS: BP 100/60
[2017-12-19] MEDS: NIACIN 500 MG TABSR PO SCH (21:30)
[2017-12-19] MEDS: ATORVASTATIN 40 MG TAB PO SCH (21:30)
[2017-12-20] VITALS (8 sets, daily range): BP systolic 101–123; BP diastolic 55–66
[2017-12-20 00:31] LABS: CREATINE KINASE MB 4.7 ng/mL (0-5.0)
--- NOTE | 2017-12-20 01:32 | Consultation ---
DATE OF CONSULTATION: December 19, [address] Pope on the 19 of December. HISTORY: This 77-year-old patient arrived in the emergency room after he awakened with substernal chest pain, which he described as tightness. The patient apparently has no nitroglycerin and did not take any medication, however, since the tightness persisted, he came to emergency room for further evaluation. The pain did not radiate to any other parts of the body and mostly stayed in the substernal region and across the anterior portion of his chest. At the moment, the patient is pain free and appeared to be comfortable. PAST HISTORY: Reveals that he has coronary artery disease, had previous coronary stenting and has a history of diabetes mellitus, hypertension, paroxysmal atrial fibrillation, hyperlipidemia, chronic renal insufficiency, GERD and peptic dyspepsia, degenerative joint disease, chronic low back pain, peripheral neuropathy. His surgeries include left inguinal hernia repair surgery for ruptured tendon in the right arm, bilateral cataract surgery with corneal transplant. He also had crushed both feet with more right than left related to work with heavy equipment. He also has sleep apnea, on CPAP. 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 ALLERGIES: CODEINE AND KEFLEX. SOCIAL HISTORY: Negative. FAMILY HISTORY: Positive for diabetes mellitus and CVA. REVIEW OF SYSTEMS: Patient's system review revealed patient denies any headache or sore throat. Denies any fever. The patient denies any shortness of breath, abdominal pain, nausea, vomiting, diarrhea, or constipation. The patient does have some chronic pain in both calves, which occur more at night. He denies any swelling. PHYSICAL EXAMINATION: VITAL SIGNS: Reveals a blood pressure 120/76. NECK: Carotid pulses are present. CHEST: Clear to auscultation. CARDIOVASCULAR SYSTEM: Reveals a normal apical impulse. The rhythm is regular. First and second are normal. There is no S3. ABDOMEN: Soft. There is no tenderness or organomegaly. EXTREMITIES: Pulses are present. There is no peripheral edema. Homans' sign is negative. NEUROLOGIC: Does not reveal any motor defect. The patient's electrocardiogram shows some first-degree AV block, but normal sinus rhythm and there are no acute changes. The patient's cardiac enzymes and BNP are within normal limits. Creatinine is elevated, is 1.61 and the GFR was reported as 42. IMPRESSION: 1. Coronary artery disease with angina pectoris. 2. Hypertension. 3. Hyperlipidemia. 4. Paroxysmal atrial fibrillation. 5. Chronic renal insufficiency. 6. Diabetes mellitus. 7. Gastroesophageal reflux disease. 8. Degenerative joint disease with chronic low back pain. The patient appears to be stable since admission. I would recommend to continue his home medication and close observation and schedule him for pharmacological nuclear stress test. Thank you very much for letting me see this very nice patient. Job#: [id number]
[2017-12-20 05:46] LABS: BASOPHILS # (AUTO) 0.1 (0.0-0.1); BASOPHILS % 0.8 % (0.0-1.0); EOSINOPHILS # (AUTO) 0.4 (0.0-0.4); EOSINOPHILS % 3.9 % (0.0-6.0); HEMATOCRIT 45.4 % (38.2-49.6); HEMOGLOBIN 14.9 g/dL (14.0-18.0); LYMPHOCYTES # (AUTO) 2.1 (1.0-3.2); LYMPHOCYTES % 19.7 % (18.0-39.1); MEAN CORPUSCULAR HEMOGLOBIN 30.5 pg (28-32); MEAN CORPUSCULAR HGB CONC 32.8 g/dL (31-35); MONOCYTES # (AUTO) 1.1 (0.2-0.8); MONOCYTES % 10.2 % (4.4-11.3); NEUTROPHILS # (AUTO) 6.8 (2.1-6.9); NEUTROPHILS % 64.8 % (38.7-80.0); PLATELET COUNT 187 x10e3/uL (140-360); RED BLOOD COUNT 4.88 x10e6/uL (4.3-5.7); RED CELL DISTRIBUTION WIDTH 13.4 % (11.7-14.4)
[2017-12-20 05:53] LABS: ALBUMIN 3.4 g/dL (3.5-5.0); ALBUMIN/GLOBULIN RATIO 1.2 (0.8-2.0); ANION GAP 12.4 mmol/L (8-16); CALCIUM 9.1 mg/dL (8.4-10.2); CHOL/HDL RATIO 4.3 (3.9-4.7); CREATININE, SERUM 1.61 mg/dL (0.72-1.25); POTASSIUM 4.4 mmol/L (3.5-5.1)
[2017-12-20] MEDS: INSULIN LISPRO 100 UNIT/1 ML 3ML VIAL SQ SCH ×4 (07:30→21:00)
[2017-12-20] MEDS ORDERED: GLIPIZIDE 5 MG TAB PO SCH (07:30)
[2017-12-20] MEDS: FAMOTIDINE 20 MG/2 ML VIAL IV SCH ×2 (08:23→20:45)
[2017-12-20] MEDS ORDERED: REGADENOSON 0.4 MG/5 ML SYR IV ONE (08:49)
[2017-12-20] MEDS ORDERED: CLOPIDOGREL BISULFATE 75 MG TAB PO SCH (09:00)
[2017-12-20] MEDS ORDERED: METFORMIN HCL 500 MG TAB CR PO SCH (09:00)
[2017-12-20] MEDS ORDERED: HYDROCHLOROTHIAZIDE 25 MG TAB PO SCH (09:00)
[2017-12-20] MEDS ORDERED: SITAGLIPTIN 100 MG TAB PO SCH (09:00)
[2017-12-20] MEDS ORDERED: DEXTROSE 50% SYRINGE 50 ML IV PRN (09:15)
[2017-12-20] MEDS ORDERED: ACETAMINOPHEN 325 MG TAB PO PRN (10:45)
[2017-12-20] MEDS: HYDROCHLOROTHIAZIDE 25 MG TAB PO SCH (14:31)
[2017-12-20] MEDS: SOTALOL HCL 80 MG TAB PO SCH ×2 (14:31→17:00)
[2017-12-20] MEDS: OMEGA 3 POLYUNSAT FATTY ACIDS 1000 MG SOFTGEL PO SCH (14:31)
[2017-12-20] MEDS: CYANOCOBALAMIN 1,000 MCG TAB PO SCH (14:31)
[2017-12-20] MEDS: ASPIRIN 81 MG ENTERIC COATED PO SCH (14:31)
[2017-12-20] MEDS: CLOPIDOGREL BISULFATE 75 MG TAB PO SCH (14:31)
[2017-12-20] MEDS: SITAGLIPTIN 100 MG TAB PO SCH (14:31)
[2017-12-20] MEDS: CHOLECALCIFEROL 1,000 UNIT TAB PO SCH (14:31)
--- NOTE | 2017-12-20 18:20 | Cardiology Report ---
DATE OF STUDY: December 20, 2017 NUCLEAR GAITED MYOCARDIAL PERFUSION SCAN REPORT Myocardial perfusion scan performed as per protocol at [facility]. The nuclear test is supervised by Dr. Mikhail Hurst. I read only the nuclear interpretation. Myoview injected 10 millicuries for resting protocol and 30 millicuries for stress protocol. Lexiscan injected at 0.4 mg intravenously agent. IMPRESSION 1. Abnormal nuclear stress test. 2. Inferior wall ischemia noted. 3. Left ventricular ejection fraction of 60%. 4. Abnormal nuclear stress test as described above. I read only the nuclear part of the stress test. Stress test is supervised by Dr. Mikhail Hurst. Job#: [id number] RI
[2017-12-20] MEDS: RAMIPRIL 5 MG CAP PO SCH (20:45)
[2017-12-20] MEDS: ATORVASTATIN 40 MG TAB PO SCH (20:45)
[2017-12-20] MEDS: NIACIN 500 MG TABSR PO SCH (20:45)
[2017-12-21] VITALS (7 sets, daily range): BP systolic 88–138; BP diastolic 56–66
[2017-12-21] MEDS: INSULIN LISPRO 100 UNIT/1 ML 3ML VIAL SQ SCH ×4 (07:30→21:00)
[2017-12-21] MEDS: SITAGLIPTIN 100 MG TAB PO SCH (07:42)
[2017-12-21] MEDS: CLOPIDOGREL BISULFATE 75 MG TAB PO SCH (07:42)
[2017-12-21] MEDS: SOTALOL HCL 80 MG TAB PO SCH (07:42)
[2017-12-21] MEDS: HYDROCHLOROTHIAZIDE 25 MG TAB PO SCH (07:42)
[2017-12-21] MEDS: ASPIRIN 81 MG ENTERIC COATED PO SCH (07:42)
[2017-12-21] MEDS: OMEGA 3 POLYUNSAT FATTY ACIDS 1000 MG SOFTGEL PO SCH (07:42)
[2017-12-21] MEDS: CYANOCOBALAMIN 1,000 MCG TAB PO SCH (07:43)
[2017-12-21] MEDS: CHOLECALCIFEROL 1,000 UNIT TAB PO SCH (07:43)
[2017-12-21] MEDS: FAMOTIDINE 20 MG/2 ML VIAL IV SCH ×2 (08:11→21:03)
[2017-12-21] MEDS ORDERED: MIDAZOLAM HCL 2 MG/2 ML VIAL ONE (16:33)
[2017-12-21] MEDS ORDERED: SODIUM CHLORIDE 0.9% 1000ML 1,000 ML ONE (16:34)
[2017-12-21] MEDS ORDERED: LIDOCAINE HCL 2% LOCAL 20 ML VIAL ONE ×2 (16:34→17:28)
[2017-12-21] MEDS ORDERED: FENTANYL CITRATE/PF 100MCG/2 ML INJ ONE (16:34)
[2017-12-21] MEDS ORDERED: IOPAMIDOL 370 MG/ML 200 ML INFUS..BTL INJ ONE ×2 (16:34→17:40)
[2017-12-21] MEDS ORDERED: HEPARIN SOD/SOD CHLORIDE 2,000 ML ONE (16:34)
[2017-12-21] MEDS ORDERED: ONDANSETRON HCL INJ 2 MG/ML VIAL IV PRN (18:45)
[2017-12-21] MEDS ORDERED: ZOLPIDEM TARTRATE 5 MG TAB PO PRN (18:45)
[2017-12-21] MEDS: ATORVASTATIN 40 MG TAB PO SCH (21:03)
[2017-12-21] MEDS: RAMIPRIL 5 MG CAP PO SCH (21:03)
[2017-12-21] MEDS: NIACIN 500 MG TABSR PO SCH (21:03)
[2017-12-21] MEDS: DEXTROSE 5%/0.225% SOD CHL 1,000 ML IV SCH (21:03)
[2017-12-22] VITALS: BP 108/57
[2017-12-22 04:00] VITALS: BP 98/54
[2017-12-22 06:12] LABS: ANION GAP 13.2 mmol/L (8-16); CALCIUM 9.2 mg/dL (8.4-10.2); CREATININE, SERUM 1.78 mg/dL (0.72-1.25); POTASSIUM 4.2 mmol/L (3.5-5.1)
[2017-12-22] MEDS: INSULIN LISPRO 100 UNIT/1 ML 3ML VIAL SQ SCH ×2 (08:16→11:30)
[2017-12-22] MEDS: DEXTROSE 5%/0.225% SOD CHL 1,000 ML IV SCH (08:16)
[2017-12-22] MEDS ORDERED: HYDROCHLOROTHIA25 MG PO (08:47)
[2017-12-22 09:12] VITALS: BP 104/63
[2017-12-22 09:50] VITALS: BP 104/63
[2017-12-22] MEDS: SITAGLIPTIN 100 MG TAB PO SCH (10:05)
[2017-12-22] MEDS: CLOPIDOGREL BISULFATE 75 MG TAB PO SCH (10:05)
[2017-12-22] MEDS: OMEGA 3 POLYUNSAT FATTY ACIDS 1000 MG SOFTGEL PO SCH (10:05)
[2017-12-22] MEDS: CHOLECALCIFEROL 1,000 UNIT TAB PO SCH (10:05)
[2017-12-22] MEDS: HYDROCHLOROTHIAZIDE 25 MG TAB PO SCH (10:05)
[2017-12-22] MEDS: CYANOCOBALAMIN 1,000 MCG TAB PO SCH (10:05)
[2017-12-22] MEDS: FAMOTIDINE 20 MG/2 ML VIAL IV SCH (10:05)
[2017-12-22] MEDS: ASPIRIN 81 MG ENTERIC COATED PO SCH (10:05)
[2017-12-22 11:34] VITALS: BP 117/64
--- NOTE | 2017-12-22 15:24 | Operative Report ---
DATE OF PROCEDURE: December 21, 2017 PREOPERATIVE DIAGNOSES: 1. Coronary disease with unstable angina pectoris and abnormal nuclear stress test. 2. Diabetes mellitus. 3. Chronic kidney disease. PROCEDURES PERFORMED: 1. Cardiac catheterization including selective coronary angiography and left ventricular angiogram. 2. Angiogram of the left inguinal area. 3. Closure of left femoral artery with Angio-Seal. DESCRIPTION OF PROCEDURE: After the usual prepping and draping, the left inguinal area was infiltrated with local lidocaine. The left femoral vein was punctured, and a guidewire was inserted as a precaution in case the patient may need coronary intervention. The left femoral artery was then punctured percutaneously, and a 6-Slovenian arterial sheath was placed under modified Seldinger technique. Selective coronary angiography was then performed by using modified Hannah catheters. Left ventricular angiogram was then performed by using a 5-Slovenian angled pigtail catheter. The pigtail catheter was also utilized for recording of hemodynamics of the left ventricle and on pullback to the aortic area. After completion of diagnostic cardiac catheterization, angiogram of the left groin area was performed prior to closure of the left femoral artery with Angio-Seal. The guidewire within the left femoral vein was then removed, and pressure was applied until hemostasis was achieved. Dressing was then applied and the patient transferred to his room in stable condition. There were no complications. The procedure was well tolerated. The patient was receiving moderate sedation starting at the beginning of the procedure. FINDINGS OF CARDIAC CATHETERIZATION: The left main coronary artery was normal. The left anterior descending branch showed some proximal plaques and narrowing up to 30%. The stent within the midportion of the left anterior descending branch was fully patent. The patient does not have any diagonal branches because he has a large intermediate branch which also has a stent in the proximal portion which is fully patent. The left circumflex and obtuse marginal branches did not show any stenotic areas. The right coronary artery was large and dominant and showed about a 20% narrowing in the midportion. The hemodynamics revealed the left ventricular pressure was 105 mmHg. The aortic pressure was 112/62 with a mean of 82 mmHg. The left ventricular end-diastolic pressure was elevated with 16 mmHg. The left ventricular angiogram showed normal contractility, and there were no wall motion abnormalities. The left ventricular ejection fraction was 65%. There was some mild scalloping of the mitral valve and mild mitral valve prolapse, but there was no mitral regurgitation. IMPRESSION: 1. Mild coronary artery disease with patent coronary stents. 2. Normal left ventricular ejection fraction with evidence of diastolic dysfunction by an elevated left ventricular end-diastolic pressure of 16 mmHg. 3. Mild mitral valve prolapse. RECOMMENDATION: . Job#: [id number] EV
--- NOTE | 2017-12-22 15:35 | Discharge Summary ---
DISCHARGE DIAGNOSES 1. Coronary artery disease, stable. 2. Type-2 diabetes mellitus, controlled. 3. Hypercholesterolemia. HISTORY OF PRESENT ILLNESS: Mr. Hood is a pleasant, 77-year-old gentleman, a patient of Dr. Bustillo, who was admitted to this hospital with complaints of sudden onset of chest pain and tightness that woke him up in the middle of the night. He has a longstanding history of coronary artery disease and atherosclerotic heart disease. He is status post prior stent placement, and he has type-2 diabetes mellitus and hypercholesterolemia. Given the fact that he was a very high-risk patient, he was admitted to the hospital for serial cardiac enzymes, telemetry and cardiology evaluation. His county bailiff proceeded with nuclear stress test, which was significant for evidence of inferior wall ischemia. For this reason, he was then programmed for cardiac catheterization. He underwent cardiac catheterization yesterday with findings of mild coronary artery disease, patent stents and normal left ventricular ejection fraction. Discharge has been recommended with maximal medical therapy. He is to follow up with his PCP and the county bailiff. AMBER VYAS MD Job#: [id number]
== END 2017-12-22 13:02 | disposition home or self-care (01) | DRG 287 ==
LOC: ER 07:10 → ERHOLD 09:24 → MED/SURG 16:29
PROVIDERS: ADMIT Internal Medicine; ATTEND Internal Medicine
PROC: 4A023N7 Measurement of Cardiac Sampling and Pressure, Left Heart, Percutaneous Approach (ICD-10-PCS; principal; 2017-12-19)
PROC: B2111ZZ Fluoroscopy of Multiple Coronary Arteries using Low Osmolar Contrast (ICD-10-PCS; 2017-12-19)
PROC: B2151ZZ Fluoroscopy of Left Heart using Low Osmolar Contrast (ICD-10-PCS; 2017-12-19)
PROC: B41B1ZZ Fluoroscopy of Other Intra-Abdominal Arteries using Low Osmolar Contrast (ICD-10-PCS; 2017-12-19)
DX: I25.110 Atherosclerotic heart disease of native coronary artery with unstable angina pectoris (principal); E78.5 Hyperlipidemia, unspecified; Z79.4 Long term (current) use of insulin; Z95.5 Presence of coronary angioplasty implant and graft; K21.9 Gastro-esophageal reflux disease without esophagitis; M19.90 Unspecified osteoarthritis, unspecified site; M54.5 Low back pain; G89.29 Other chronic pain; I48.0 Paroxysmal atrial fibrillation; Z79.01 Long term (current) use of anticoagulants; E11.40 Type 2 diabetes mellitus with diabetic neuropathy, unspecified; E11.65 Type 2 diabetes mellitus with hyperglycemia; I12.9 Hypertensive chronic kidney disease with stage 1 through stage 4 chronic kidney disease, or unspecified chronic kidney disease; N18.9 Chronic kidney disease, unspecified; I50.9 Heart failure, unspecified; I34.1 Nonrheumatic mitral (valve) prolapse
CPT/HCPCS: 36415; 71045; 78452; 80048; 80053; 80061; 81001; 82550; 82553; 82948; 83735; 83880; 84484; 85025; 85610; 85730; 93005; 93017; 93458; 96372; 96376; 99284; A9502; J2001; J2250; J7030; Q9967

== ENCOUNTER → 2018-03-12 | Outpatient (CLI) | payer MEDICARE ==
--- NOTE | 2018-03-12 15:49 | Diagnostic Imaging Report ---
Exam: Abdominal film Clinical History: Kidney cysts, kidney stones Comparison: Abdominal radiograph 07/23/2017, CT abdomen and pelvis 07/22/2017 DISCUSSION: Interval removal of left internal ureteral stent. 4 mm distal left ureteral calculus is no longer appreciated. 8 mm calculus projects over the lower pole the left renal shadow, unchanged. No additional calcifications. Indistinct renal shadows in keeping with multiple renal cysts as previously described. Bowel gas pattern is nonobstructive. No acute osseous abnormality. Status post L5 laminectomy. IMPRESSION: 8 mm left lower pole renal calculus unchanged compared to 07/23/2017. No additional plain film evidence of urolithiasis. Signed by: Dr. Curtis Wilburn M.D. on 03/12/2018 3:46 PM
--- NOTE | 2018-03-12 16:21 | Diagnostic Imaging Report ---
EXAMINATION: Renal ultrasound. CLINICAL HISTORY :Multiple renal cysts COMPARISON: CT abdomen and pelvis without contrast 07/22/2017 TECHNIQUE: Grayscale and color Doppler evaluation of the kidneys and bladder was performed in transverse and longitudinal planes. DISCUSSION: RIGHT KIDNEY: The right kidney measures 19.7 cm in length and shows normal echogenicity. Multiple large round anechoic lesions compatible with simple cysts are identified, for example in the interpolar region measuring 6.7 x 5 x 5.9 cm. In the lower pole, there is a lesion with a single thin internal septation measuring 9.5 x 9.7 x 9.8 cm. LEFT KIDNEY: The left kidney measures 18.1 cm in length and shows normal echogenicity. Multiple round, anechoic lesions compatible with simple cysts are identified, the largest of which measure 6.3 x 5.9 x 5.8 cm and 8.9 x 6.7 x 8.5 cm. BLADDER: Unremarkable. Bilateral ureteral jets are identified. IMPRESSION: 1. Multiple bilateral renal cysts. The largest right-sided cyst has a single thin internal septation. Otherwise no suspicious sonographic features. Follow-up ultrasound in one year may be of benefit to assess for stability. Signed by: Dr. Curtis Wilburn M.D. on 03/12/2018 4:17 PM
== END ==
LOC: US 14:46
PROVIDERS: ATTEND Urology
DX: N20.0 Calculus of kidney (principal); N28.1 Cyst of kidney, acquired; R39.14 Feeling of incomplete bladder emptying
CPT/HCPCS: 74018; 76770; 76857

== ENCOUNTER 2019-04-28 16:23 | Observation (INO) | payer MEDICARE ==
[~2019-04-28] VITALS: Ht 180.3 cm; Wt 83.0 kg
--- OUTSIDE RECORDS SUMMARY | 2019-04-28 16:27 | XMS REPORT | Summary of Care ---
Author Author [facility] Organization [facility] Address Unknown Phone Unavailable Care Team Providers Care Career Development Coordinator Name Role Phone PCP Unavailable Reason for Visit * Reason Comments Pseudophakia Pseudophakia, both eyes * Consult, Test & Treat (Routine) Referred By Contact Referred To Contact Status Reason Specialty Diagnoses / Procedures [facility] Ophthalmology [address] [place] [address] Ted Alonso MD [address] [place] [address] Authorization Ophth Cornea Diagnoses Not Needed Specialist / Nov (here 2014) Ophthalmology Sun Ck Nov (here 2014) Sun Ck///refraction P rocedures NEW PATIENT Encounter Details Care Team Description Date Type Department Ted Alonso MD [address] [place], [place] [id number] Pseudophakia (Pseudophakia, both eyes ) 04/10/2019 Office Visit [facility] Ophthalmology [address] [place] [address] Allergies Comments Active Allergy Reactions Severity Noted Date Codeine Phosphate 06/28/2011 documented as of this encounter (statuses as of 04/10/2019) Medications End Date Status Medication Sig Dispensed Refills Start Date Active Atorvastatin Calcium Take by 0 (LIPITOR OR) mouth. Active NIACIN 0 Active FISH OIL 0 Active METFORMIN HCL 0 Active ASPIRIN 0 Active GLIPIZIDE 0 Active ramipril (ALTACE) 1.25 MG Take 1.25 mg 0 capsule by mouth daily. Active HYDROCHLOROTHIAZIDE 0 Active Sitagliptin Phosphate Take by 0 (JANUVIA) 100 MG TABS mouth. Active clopidogrel (PLAVIX) 75 Take 75 mg by 0 MG tablet mouth daily. Active warfarin (COUMADIN) 5 MG Take 5 mg by 0 tablet mouth daily. Active prednisoLONE acetate Place 1 Drop 10 mL 8 (PRED FORTE) 1 % into both 4 ophthalmic suspension eyes daily. Shake well before instillation Additional Information Patient not taking. Reason: Discontinued by other provider, Reported on 04/10/2019 3:45 PM documented as of this encounter (statuses as of 04/10/2019) Active Problems Problem Noted Date s/p DSAEK, Left eye (12/14/2009) 04/10/2019 Fuchs' corneal dystrophy 04/10/2019 Diabetes mellitus type 2 without retinopathy (HCCode) 04/10/2019 Type II or unspecified type diabetes mellitus without mention of 01/04/2012 complication, not stated as uncontrolled s/p DSAEK, Right Eye (08/31/2009) 06/28/2011 documented as of this encounter (statuses as of 04/10/2019) Resolved Problems Problem Noted Date Resolved Date Pupil reaction absent 06/29/2011 01/04/2012 documented as of this encounter (statuses as of 04/10/2019) Social History Date Tobacco Use Types Packs/Day Years Used Never Smoker Smokeless Tobacco: Never Used Drinks/Week oz/Week Comments Alcohol Use Not Asked Sex Assigned at Date Recorded Not on file Industry Job Start Date Occupation Not on file Not on file Not on file Travel End Travel History Travel Start No recent travel history available. documented as of this encounter Last Filed Vital Signs Not on filedocumented in this encounter Progress Notes * Ted Alonso MD - 04/10/2019 3:00 PM [employer] STUDY/STUDIES: none ASSESSMENT: 1. Fuchs' corneal dystrophy 2. s/p DSAEK, Right Eye (08/31/2009) 3. s/p DSAEK, Left eye (12/14/2009) 4. Diabetes mellitus type 2 without retinopathy (HCCode) - Doing well - Still w/ no diabetic retinopathy PLAN: - Continue glasses - Return to clinic in 1 year ATTESTATIONS: I have reviewed the PMH, SH, FHX, ROS, MEDS, ALLERGIES and TECH NOTE, and have u pdated the computerized patient record appropriately. The risks, benefits, and alternatives of treatment were discussed with the patie nt (& family, if present). All questions regarding diagnosis and treatment were answered to the patient's satisfaction. 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
--- OUTSIDE RECORDS SUMMARY | 2019-04-28 16:27 | XMS REPORT | Summary of Care ---
Author Author Montserrat Yuen Organization Unknown Address Unknown Phone Unavailable Care Team Providers Care Survey Technologist Name Role Phone IFTIKHAR Bledsoe, GISELE Unavailable Unavailable Montserrat Yuen Unavailable Unavailable PANKAJ SQUIRES M.D., LARRY Unavailable Unavailable CHIRAG Bledsoe, IRVIN Unavailable Unavailable GISELE BUITRAGO MD Unavailable Unavailable CHIRAG TINSLEY [place], IRVIN Rivera Unavailable Unavailable JULIA, LARRY Unavailable Unavailable DARRIAN TINSLEY [place], SVITLANA Neff Unavailable Unavailable MAISHA T[place], BUCK Butler Unavailable Unavailable CHRIS T[place], IVON [place] Unavailable Unavailable Unavailable Unavailable Functional Status Name [...] for influenza vaccination (V04.81, Z23) Status: Active Post-operative state (V45.89, Z98.890) Status: Active Erythrocytosis (289.0, D75.1) Status: Active Pain in right shoulder (719.41, M25.511) Status: Active Lumbar radiculopathy, acute (724.4, M54.16) Status: Active Acute hip pain, right (719.45, M25.551) Status: Active Need for pneumococcal vaccination (V03.82, Z23) Status: Active Bilateral radiating leg pain (729.2, M54.10) Status: Active Bilateral calf pain (729.5, M79.661) Status: Active Primary osteoarthritis of both knees (715.16, M17.0) Status: Active Lumbar radiculopathy, chronic (724.4, M54.16) Status: Active Left knee pain (719.46, M25.562) Status: Active Right knee pain (719.46, M25.561) Status: Active Advance directive discussed with patient (V65.49, Z71.89) Status: Active Encounter for mini-mental status examination Status: Active Depression screen (V79.0, Z13.31) Status: Active At moderate risk for fall (V15.88, Z91.81) Status: Active Medicare annual wellness visit, subsequent (V70.0, Z00.00) Status: Active Pre-op exam (V72.84, Z01.818) Status: Active Arthritis of knee, right (716.96, M17.11) Status: Active Postoperative pain (338.18, G89.18) Status: Active Diabetes mellitus with peripheral circulatory disorder (250.70, E11.51) Status: Active Essential (primary) hypertension (401.9, I10) Status: Active Mixed hyperlipidemia (272.2, E78.2) Status: Active Vitamin B12 deficiency (266.2, E53.8) Status: Active Vitamin D deficiency (268.9, E55.9) Status: Active Arthritis of left knee (716.96, M17.12) Status: Active Medications Name Dates Details Januvia 100 MG Oral Tablet TAKE 1 TABLET BY MOUTH ONCE DAILY; May decrease to 1/2 tablet as directed Quantity: 90 GISELE BUITRAGO M.D. * Start : 28-Jan-2012 Active glipiZIDE 5 MG Oral Tablet TAKE 1 TABLET IN THE MORNING WITH FOOD AND TAKE 1 TABLET IN THE EVENING WITH TIMI D * Quantity: 180 Refills: 0 GISELE BUITRAGO M.D. * Start : 28-Jan-2012 Active metFORMIN HCl ER 500 MG Oral Tablet Extended Release 24 Hour TAKE 1 TABLET BY MOUTH ONCE DAILY * Quantity: 90 Refills: 0 GISELE BUITRAGO M.D. * Start : 28-Jan-2012 Active Niacin ER 500 MG Oral Capsule Extended Release TAKE 2 CAPSULE AT BEDTIME. (May give NIASPAN 500) Per Dr Hurst * Refills: 1 GISELE BUITRAGO M.D. * Start : 28-Jan-2012 Active Atorvastatin Calcium 80 MG Oral Tablet TAKE 1 TABLET AT BEDTIME * Quantity: 90 Refills: 0 GISELE BUITRAGO M.D. * Start : 28-Jan-2012 Active Ramipril 10 MG Oral Capsule TAKE 1 CAPSULE BY MOUTH ONCE DAILY * Quantity: 90 Refills: 0 GISELE BUITRAGO M.D. * Start : 28-Jan-2012 Active hydroCHLOROthiazide 12.5 MG Oral Tablet TAKE 1 TABLET EVERY DAY * Quantity: 90 Refills: 0 IFTIKHAR Bledsoe, GISELE * Start : 28-Jan-2012 Active Fish Oil 1000 MG Oral Capsule TAKE 1 CAPSULE DAILY. * Refills: 0 GISELE BUITRAGO M.D. * Start : 28-Jan-2012 Active Centrum Silver Ultra Mens TABS 1 a day * Refills: 0 GISELE BUITRAGO M.D. * Start : 28-Jan-2012 Active Vitamin B-12 500 MCG Oral Tablet TAKE 1 TABLET DAILY. * Refills: 0 GISELE BUITRAGO M.D. * Start : 28-Jan-2012 Active Vitamin D 50 MCG (2000 UT) Oral Capsule 1 a day * Refills: 0 GISELE BUITRAGO M.D. * Start : 28-Jan-2012 Active Sotalol HCl - 80 MG Oral Tablet * Refills: 0 GISELE BUITRAGO M.D. * Start : 10-Feb-2012 Active Clopidogrel Bisulfate 75 MG Oral Tablet * Refills: 0 GISELE BUITRAGO M.D. * Start : 02-Jan-2014 Active HumuLIN N KwikPen 100 UNIT/ML Subcutaneous Suspension Pen-injector Inject 2 unit for every 4 mg tablet of methylprednisone (to be taken at the neisha e time ) * Quantity: 5 Refills: 2 GISELE BUITRAGO M.D. * Start : 06-Nov-2014 Active 3 ML Pen Accu-Chek Guide In Vitro Strip USE ONE TEST STRIP TO CHECK BLOOD GLUCOSE THREE TIMES DAILY * Quantity: 3 Refills: 0 GISELE BUITRAGO M.D. * Start : 13-Jun-2018 Active 100 Strip Box Accu-Chek FastClix Lancets 3x a day for blood sugar monitoring. * Quantity: 1 Refills: 11 IFTIKHAR [place].GISELE Tracy * Start : 14-Nov-2014 Active 102 Unit Box Gabapentin 300 MG Oral Capsule Per neurologist * Quantity: 90 Refills: 1 GISELE BUITRAGO M.D. * Start : 15-Feb-2018 Active Diclofenac Sodium 1 % Transdermal Gel APPLY SPARINGLY TO AFFECTED AREA(S) ONCE DAILY * Quantity: 2 Refills: 0 PANKAJ SQUIRES M.D. LARRY * Start : 20-Mar-2018 Active 100 GM Tube oxyCODONE HCl - 5 MG Oral Tablet TAKE 1 TO 2 TABLETS EVERY 4 TO 6 HOURS NEEDED FOR PAIN. * Quantity: 60 Refills: 0 CHIRAG Bledsoe IRVIN * Start : 18-Feb-2019 Active Allergies and Adverse Reactions Name Dates Details [...] Z87.442) Status: Resolved Procedures Procedure Dates Details Initial Promis 29 Survey Date: 04-Feb-2019 Post Op Promis 29 Survey Date: 12-Mar-2019 History of Back Surgery Completed History of Elbow Surgery Completed History of PTCA Completed History of PTCA Completed History of Hemorrhoidectomy Completed History of Shoulder Surgery Completed History of Knee replacement Completed Immunization Name Dates Details Influenza Lot #: [id number] on: 02-Jan-2014 Fluzone High-Dose 0.5 ML Intramuscular Suspension Prefilled Syringe Lot #: [id number] on: 21-Mar-2017 Fluzone High-Dose 0.5 ML Intramuscular Suspension Prefilled Syringe Lot #: [id number] on: 10-Nov-2017 Prevnar 13 Intramuscular Suspension Lot #: [id number] on: 10-Nov-2017 Family History Name Dates Details [...] to report Results Date Description Value Details Results not documented Plan of Care Name Dates Details Planned Observations Planned Goals not documented Planned Encounters Appointment; IRVIN BEARD M.D. On: 11-Apr-2019 10:15 Appointment; GISELE BUITRAGO M.D. On: 12-Jun-2019 10:00 Interventions Provided Labs/Procedures/Imaging* Post Op Promis 29 Survey; To Be Done: 12 Mar 2019 Instructions Name Dates Details Instructions not documented Encounters Appointment; ANGEL MARCIAL M.D. Encounter Diagnosis: Problem [...] Diagnosis: Problem not documented On: 12-Dec-2017 8:45 Appointment; GISELE BUITRAGO M.D. Encounter Diagnosis: Problem not documented On: 02-Jan-2018 8:30 Appointment; LARRY RICHARDS M.D. Encounter Diagnosis: Problem not documented On: 15-Feb-2018 9:45 Appointment; LARRY RICHARDS M.D. Encounter Diagnosis: Problem not documented On: 21-Feb-2018 8:30 Appointment; BUCK FERRERA M.D. Encounter Diagnosis: Problem not documented On: 22-Feb-2018 13:30 Appointment; LARRY RICHARDS M.D. Encounter Diagnosis: Problem not documented On: 28-Feb-2018 8:30 Appointment; LARRY RICHARDS M.D. Encounter Diagnosis: Problem not documented On: 07-Mar-2018 8:30 Appointment; SVITLANA COLMENARES M.D. Encounter Diagnosis: Problem not documented On: 30-Mar-2018 9:30 Appointment; GISELE BUITRAGO M.D. Encounter Diagnosis: Problem not documented On: 16-Apr-2018 9:30 Appointment; BUCK FERRERA M.D. Encounter Diagnosis: Problem not documented On: 27-Jun-2018 9:30 Appointment; LARRY RICHARDS M.D. Encounter Diagnosis: Problem not documented On: 28-Jun-2018 9:00 Appointment; GISELE BUITRAGO M.D. Encounter Diagnosis: Problem not documented On: 25-Jul-2018 11:00 Appointment; SVITLANA COLMENARES M.D. Encounter Diagnosis: Problem not documented On: 20-Aug-2018 9:30 Appointment; KIRSTIE OLIVO P.A. Encounter Diagnosis: Problem not documented On: 30-Aug-2018 15:30 Appointment; IRVIN BEARD M.D. Encounter Diagnosis: Problem not documented On: 10-Sep-2018 14:00 Appointment; KIRSTIE OLIVO P.A. Encounter Diagnosis: Problem not documented On: 21-Sep-2018 9:45 Appointment; IRVIN BEARD M.D. Encounter Diagnosis: Problem not documented On: 24-Oct-2018 10:45 Appointment; GISELE BUITRAGO M.D. Encounter Diagnosis: Problem not documented On: 25-Oct-2018 15:15 Appointment; KIRSTIE OLIVO P.A. Encounter Diagnosis: Problem not documented On: 24-Jan-2019 13:15 Appointment; GISELE BUITRAGO M.D. Encounter Diagnosis: Problem not documented On: 05-Feb-2019 10:00 Appointment; IRVIN BEARD M.D. Encounter Diagnosis: Problem not documented On: 25-Feb-2019 8:00 Appointment; KIRSTIE OLIVO P.A. Encounter Diagnosis: Problem not documented On: 08-Mar-2019 10:00
--- OUTSIDE RECORDS SUMMARY | 2019-04-28 16:27 | XMS REPORT | Summary of Care ---
Author Author Jacklyn Tobin, Olesya Benavidez Unknown Address Unknown Phone Unavailable Care Team Providers Care Plater [employer]ed Circuit Board Panels Name Role Phone IFTIKHAR Bledsoe, GISELE Unavailable Unavailable PANKAJ SQUIRES M.D., LARRY Unavailable Unavailable CHIRAG Bledsoe, IRVIN Unavailable Unavailable GISELE BUITRAGO MD Unavailable Unavailable CHIRAG TINS[place], IRVIN Rivera Unavailable Unavailable JULIA, LARRY Unavailable Unavailable DARRIAN TINSLEY [place], SVITLANA Neff Unavailable Unavailable MAISHA [place], BUCK Butler Unavailable Unavailable CHRIS [place], IVON [place] Unavailable Unavailable Unavailable Unavailable Functional [...] AT BEDTIME * Quantity: 90 Refills: 0 IFTIKHARMickey Bledsoe, GISELE * Start : 28-Jan-2012 Active Ramipril 10 [...] 1 a day * Refills: 0 IFTIKHAR Bledsoe, GISELE * Start : 28-Jan-2012 Active Sotalol HCl - 80 MG Oral Tablet * Refills: 0 GISELE BUITRAGO M.D. * Start : 10-Feb-2012 Active Clopidogrel Bisulfate 75 MG Oral Tablet * Refills: 0 GISEEL BUITRAGO M.D. * Start : 02-Jan-2014 Active [...] Per neurologist * Quantity: 90 Refills: 1 GISEEL BUITRAGO M.D. * Start : 15-Feb-2018 Active Diclofenac Sodium 1 % Transdermal Gel APPLY SPARINGLY TO AFFECTED AREA(S) ONCE DAILY * Quantity: 2 Refills: 0 LARRY RICHARDS M.D. * Start : 20-Mar-2018 Active 100 GM [...] [id number]) Status: Resolved Procedures Procedure Dates Details Post Op Promis 29 Survey Date: 12-Mar-2019 [U] XRAY KNEE 3 VWS LEFT [id number] Date: 08-Apr-2019 History of Back Surgery Completed History of Elbow Surgery Completed History of PTCA Completed History of PTCA Completed History of Hemorrhoidectomy Completed History of Shoulder Surgery Completed History of Knee replacement Completed Immunization Name Dates Details Influenza Lot #: [id number] on: 02-Jan-2014 Fluzone High-Dose 0.5 ML Intramuscular Suspension Prefilled Syringe Lot #: [id number] on: 21-Mar-2017 Fluzone High-Dose 0.5 ML Intramuscular Suspension Prefilled Syringe Lot #: [id number] on: 10-Nov-2017 Prevnar 13 Intramuscular Suspension Lot #: [id number] on: 10-Nov-2017 Family History Name Dates Details [...] M.D. On: 12-Jun-2019 10:00 Interventions Provided Labs/Procedures/Imaging* [U] XRAY KNEE 3 VWS LEFT [id number]; To Be Done: 11 Apr 2019 Instructions Name Dates Details Instructions not [...] not documented On: 02-Jan-2018 8:30 Appointment; LARRY RICHARSD M.D. Encounter Diagnosis: Problem not documented On: 15-Feb-2018 9:45 Appointment; LARRY RICHARDS M.D. Encounter Diagnosis: Problem not documented On: 21-Feb-2018 8:30 Appointment; BUCK FERRERA M.D. Encounter Diagnosis: Problem not documented On: 22-Feb-2018 13:30 Appointment; LARRY RICHARDS M.D. Encounter Diagnosis: Problem not documented On: 28-Feb-2018 8:30 Appointment; LARRY RICHARDS M.D. Encounter Diagnosis: Problem not documented On: 07-Mar-2018 8:30 Appointment; SVITLANA COLEMNARES M.D. Encounter Diagnosis: Problem not documented On: [...] Diagnosis: Problem not documented On: 08-Mar-2019 10:00 Appointment; IRVIN BEARD M.D. Encounter Diagnosis: Problem not documented On: 11-Apr-2019 10:15
--- OUTSIDE RECORDS SUMMARY | 2019-04-28 16:27 | XMS REPORT | Summary of Care ---
Author Author Ai Tobin, [facility] Address [facility] Phone Unavailable Care Team Providers Care Clerical Grader Name Role Phone IFTIKHAR Bledsoe, GISELE Unavailable Unavailable PANKAJ SQUIRES M.D., LARRY Unavailable Unavailable CHIRAG Bledsoe, IRVIN Unavailable Unavailable GISELE BUITRAGO MD Unavailable Unavailable CHIRAG TINS[place], IRVIN Rivera Unavailable Unavailable JULIA, LARRY Unavailable Unavailable DARRIAN [place], SVITLANA Neff Unavailable Unavailable MAISHA [place], BUCK Butler Unavailable Unavailable CHRIS [place], IVON [place] Unavailable Unavailable Unavailable Unavailable Functional [...] Per neurologist * Quantity: 90 Refills: 1 IFTIKHAR Wall.GISELE Tracy * Start : 15-Feb-2018 Active Diclofenac Sodium [...] 12-Mar-2019 [U] XRAY KNEE 3 VWS LEFT [id number] Date: 08-Apr-2019 History of Back Surgery Completed History of Elbow Surgery Completed History of PTCA Completed History of PTCA Completed History of Hemorrhoidectomy Completed History of Shoulder Surgery Completed History of Knee replacement Completed Immunization Name Dates Details Influenza Lot #: [id number] on: 02-Jan-2014 Fluzone High-Dose 0.5 ML Intramuscular Suspension Prefilled Syringe Lot #: [id number] on: 21-Mar-2017 Fluzone High-Dose 0.5 ML Intramuscular Suspension Prefilled Syringe Lot #: [id number] on: 10-Nov-2017 Prevnar 13 Intramuscular Suspension Lot #: [id number] on: 10-Nov-2017 Family History Name Dates Details [...] BUITRAGO M.D. On: 12-Jun-2019 10:00 Interventions Provided Medication Changes* Atorvastatin Calcium 80 MG Oral Tablet - Renew Instructions Name Dates Details Instructions not documented [...]
--- OUTSIDE RECORDS SUMMARY | 2019-04-28 16:28 | XMS REPORT | Summary of Care ---
Author Author KIRSTIE LUGO Unknown Address Unknown Phone Unavailable Care Team Providers Care Medical Billing Supervisor Name Role Phone IFTIKHAR Bledsoe, GISELE Unavailable Unavailable PANKAJ SQUIRES M.D., LARRY Unavailable Unavailable CHIRAG Bledsoe, IRVIN Unavailable Unavailable GEOVANI Santacruz, KIRSTIE Unavailable Unavailable DARRIAN TINS[place], SVITLANA Neff Unavailable Unavailable MAISHA [place], BUCK Butler Unavailable Unavailable CHRIS [place], IVON [place] Unavailable Unavailable GISELE BUITRAGO MD Unavailable Unavailable CHIRAG T[place], IRVIN Rivera Unavailable Unavailable JULIA, LARRY Unavailable Unavailable Unavailable Unavailable Functional Status Name [...] to 1/2 tablet as directed Quantity: 90 IFTIKHAR M.GISELE Tracy * Start : 28-Jan-2012 Active glipiZIDE 5 MG Oral Tablet TAKE 1 TABLET IN THE MORNING WITH FOOD AND TAKE 1 TABLET IN THE EVENING WITH TIMI D * Quantity: 180 Refills: 0 IFTIKHARGISELE Arevalo M.D. * Start : 28-Jan-2012 Active metFORMIN HCl ER 500 MG Oral Tablet Extended Release 24 Hour TAKE 1 TABLET BY MOUTH ONCE DAILY * Quantity: 90 Refills: 0 IFTIKHAR Duke.GISELE Tracy * Start : 28-Jan-2012 Active Niacin ER 500 MG Oral Capsule Extended Release TAKE 2 CAPSULE AT BEDTIME. (May give NIASPAN 500) Per Dr Hurst * Refills: 1 GISELE BUITRAGO M.D. * Start : 28-Jan-2012 Active Atorvastatin Calcium 80 MG Oral Tablet TAKE 1 TABLET AT BEDTIME * Quantity: 90 Refills: 0 IFTIKHAR MGISELE Phipps * Start : 28-Jan-2012 Active Ramipril 10 MG Oral Capsule TAKE 1 CAPSULE BY MOUTH ONCE DAILY * Quantity: 90 Refills: 0 IFTIKHAR M.Rach., GISELE * Start : 28-Jan-2012 Active hydroCHLOROthiazide 12.5 MG Oral Tablet TAKE 1 TABLET EVERY DAY * Quantity: 90 Refills: 0 IFTIKHAR M.Rach., GISELE * Start : 28-Jan-2012 Active Fish Oil 1000 MG Oral Capsule TAKE 1 CAPSULE DAILY. * Refills: 0 IFTIKHAR M.Rach.GISELE * Start : 28-Jan-2012 Active Centrum Silver Ultra Mens TABS 1 a day * Refills: 0 IFTIKHAR M.Rach., GISELE * Start : 28-Jan-2012 Active Vitamin B-12 500 MCG Oral Tablet TAKE 1 TABLET DAILY. * Refills: 0 IFTIKHAR M.Rach., GISELE * Start : 28-Jan-2012 Active Vitamin D 50 MCG (2000 UT) Oral Capsule 1 a day * Refills: 0 IFTIKHAR M.GISELE Tracy * Start : 28-Jan-2012 Active Sotalol HCl - 80 MG Oral Tablet * Refills: 0 IFTIKHAR M.GISELE Tracy * Start : 10-Feb-2012 Active Clopidogrel Bisulfate 75 MG Oral Tablet * Refills: 0 IFTIKHAR M.GISELE Tracy * Start : 02-Jan-2014 Active HumuLIN N KwikPen 100 UNIT/ML Subcutaneous Suspension Pen-injector Inject 2 unit for every 4 mg tablet of methylprednisone (to be taken at the neisha e time ) * Quantity: 5 Refills: 2 IFTIKHAR M.GISELE Tracy * Start : 06-Nov-2014 Active 3 ML Pen Accu-Chek Guide In Vitro Strip USE ONE TEST STRIP TO CHECK BLOOD GLUCOSE THREE TIMES DAILY * Quantity: 3 Refills: 0 IFTIKHAR M.D., GISELE * Start : 13-Jun-2018 Active 100 Strip Box Accu-Chek FastClix Lancets 3x a day for blood sugar monitoring. * Quantity: 1 Refills: 11 IFTIKHAR M.D.GISELE * Start : 14-Nov-2014 Active 102 Unit Box Gabapentin 300 MG Oral Capsule Per neurologist * Quantity: 90 Refills: 1 IFTIKHAR M.GISELE Tracy * Start : 15-Feb-2018 Active Diclofenac Sodium 1 % Transdermal Gel APPLY SPARINGLY TO AFFECTED AREA(S) ONCE DAILY * Quantity: 2 Refills: 0 LARRY RICHARDS M.D. * Start : 20-Mar-2018 Active 100 GM Tube oxyCODONE HCl - 5 MG Oral Tablet TAKE 1 TO 2 TABLETS EVERY 4 TO 6 HOURS NEEDED FOR PAIN. * Quantity: 60 Refills: 0 IRVIN BEARD M.D. * Start : 18-Feb-2019 Active tiZANidine HCl - 2 MG Oral Tablet TAKE 1 TABLET EVERY 6 HOURS NEEDED FOR SPASM. * Quantity: 20 Refills: 0 KIRSTIE LUGO * Start : 11-Apr-2019 Active Allergies and Adverse Reactions Name Dates [...] 12-Mar-2019 [U] XRAY KNEE 3 VWS LEFT [id number] Date: 08-Apr-2019 History of Back Surgery Completed History of Elbow Surgery Completed History of PTCA Completed History of PTCA Completed History of Hemorrhoidectomy Completed History of Shoulder Surgery Completed History of Knee replacement Completed Immunization Name Dates Details Influenza Lot #: [id number] on: 02-Jan-2014 Fluzone High-Dose 0.5 ML Intramuscular Suspension Prefilled Syringe Lot #: [id number] on: 21-Mar-2017 Fluzone High-Dose 0.5 ML Intramuscular Suspension Prefilled Syringe Lot #: [id number] on: 10-Nov-2017 Prevnar 13 Intramuscular Suspension Lot #: [id number] on: 10-Nov-2017 Family History Name Dates Details [...] Planned Goals not documented Planned Encounters Appointment; GISELE BUITRAGO M.D. On: 12-Jun-2019 10:00 Interventions Provided Medication Changes* tiZANidine HCl - 2 MG Oral Tablet - Start Labs/Procedures/Imaging* [U] XRAY KNEE 3 VWS LEFT [id number]; To Be Done: 11 Apr 2019 Instructions [...] not documented On: 10-Sep-2018 14:00 Appointment; KIRSTIE LOIVO P.A. Encounter Diagnosis: Problem not documented On: [...]
[2019-04-28 17:31] LABS: BASOPHILS % 0.3 % (0.0-1.0); EOSINOPHILS # (AUTO) 0.3 (0.0-0.4); EOSINOPHILS % 2.2 % (0.0-6.0); HEMOGLOBIN 15.8 g/dL (14.0-18.0); LYMPHOCYTES # (AUTO) 0.6 (1.0-3.2); LYMPHOCYTES % 3.9 % (18.0-39.1); MEAN CORPUSCULAR HEMOGLOBIN 30.2 pg (28-32); MEAN CORPUSCULAR HGB CONC 32.2 g/dL (31-35); MEAN CORPUSCULAR VOLUME 93.7 fL (81-99); MONOCYTES # (AUTO) 1.2 (0.2-0.8); MONOCYTES % 8.7 % (4.4-11.3); NEUTROPHILS % 84.4 % (38.7-80.0); PLATELET COUNT 196 x10e3/uL (140-360); RED BLOOD COUNT 5.23 x10e6/uL (4.3-5.7); RED CELL DISTRIBUTION WIDTH 14.6 % (11.7-14.4)
[2019-04-28 17:40] LABS: CLARITY,URINE CLEAR (CLEAR); COLOR,URINE YELLOW (YELLOW); LEUKOCYTE ESTERASE ,URINE NEGATIVE (NEGATIVE); NITRITE,URINE NEGATIVE (NEGATIVE)
[2019-04-28 17:41] LABS: BILIRUBIN,URINE NEGATIVE (NEGATIVE); KETONES,URINE NEGATIVE (NEGATIVE); PROTEIN,URINE DIPSTICK 1+ (NEGATIVE); URINE UROBILINOGEN 0.2 mg/dL (0.2 - 1)
[2019-04-28 17:50] LABS: ALANINE AMINOTRANSFERASE 24 IU/L (0-55); ALBUMIN 3.8 g/dL (3.5-5.0); ALBUMIN/GLOBULIN RATIO 0.9 (0.8-2.0); ALKALINE PHOSPHATASE 68 IU/L (40-150); ANION GAP 15.6 mmol/L (8-16); BLOOD UREA NITROGEN 23 mg/dL (7-26); BUN/CREATININE RATIO 15 (6-25); CALCIUM 9.8 mg/dL (8.4-10.2); CARBON DIOXIDE 26 mmol/L (22-29); CHLORIDE 105 mmol/L (98-107); CREATINE KINASE 97 IU/L (30-200); CREATININE, SERUM 1.53 mg/dL (0.72-1.25); EST GLOMERULAR FILTRATION RATE 44 ML/MIN (60-); GLUCOSE 148 mg/dL (74-118); POTASSIUM 5.6 mmol/L (3.5-5.1); SODIUM 141 mmol/L (136-145)
--- NOTE | 2019-04-28 17:51 | Diagnostic Imaging Report ---
EXAMINATION: CHEST SINGLE (PORTABLE) INDICATION: Cough. COMPARISON: Chest radiograph 12/19/2017. FINDINGS: TUBES and LINES: None. LUNGS: Low lung volumes on the right with unchanged elevation of the right hemidiaphragm. Central vascular congestion with mild interstitial opacities. Patchy right basilar opacity. PLEURA: No pleural effusion or pneumothorax. HEART AND MEDIASTINUM: The cardiomediastinal silhouette is unremarkable. BONES AND SOFT TISSUES: No acute osseous lesion. Soft tissues are unremarkable. UPPER ABDOMEN: No free air under the diaphragm. IMPRESSION: Low right lung volume with patchy right basilar opacities, which may represent early pneumonia or atelectasis in the appropriate clinical setting. Signed by: Dr. Vinod Alicea MD on 04/28/2019 5:48 PM
[2019-04-28 17:56] LABS: BACTERIA,URINE MODERATE /HPF; EPITHELIAL CELLS,URINE FEW /LPF; RBC,URINE 0-5 /HPF (0-5)
[2019-04-28] MEDS ORDERED: AZITHROMYCIN 500MG/NS 250 ML 250 ML IV ONE (18:38)
[2019-04-28] MEDS ORDERED: SOD POLYSTYRENE SULFONATE SUSP 15 GM/60 ML BTL PO ONE (18:45)
[2019-04-28] MEDS ORDERED: SODIUM CHLORIDE 0.9% 1000ML 1,000 ML IV STA (18:47)
--- NOTE | 2019-04-28 18:51 | NUR ---
bedside commode placed in room in order for patient to use restroom. Educated patient if he needed any assistance to press call vilchis. Patient verbalized understanding. Report given to Yonas KATZ
[2019-04-28] MEDS ORDERED: CEFTRIAXONE SOD 1 GM VIAL ONE (18:59)
[2019-04-28] MEDS: CEFTRIAXONE SOD 1 GM/NS 50 ML 50 ML IV SCH (19:15)
[2019-04-28] MEDS ORDERED: SODIUM CHLORIDE 0.9% 50ML 50 ML ONE (20:08)
[2019-04-28] MEDS ORDERED: IOPAMIDOL 370 MG/ML 200 ML INFUS..BTL INJ ONE (20:08)
--- NOTE | 2019-04-28 21:14 | Diagnostic Imaging Report ---
EXAM: CT Abdomen and Pelvis WITH contrast INDICATION: Abdominal pain, diarrhea, vomiting ^abd pain ^[id number] ^2024 COMPARISON: Abdominal CT 07/22/2017 TECHNIQUE: Abdomen and pelvis were scanned utilizing a multidetector helical scanner from the lung base to the pubic symphysis after administration of IV contrast. Coronal and sagittal reformations were obtained. Routine protocol was performed. Scan was performed when during portal venous phase. IV CONTRAST: 100 mL of Isovue 370 ORAL CONTRAST: None COMPLICATIONS: None RADIATION DOSE: Total DLP: 859 mGy*cm Estimated effective dose: (DLP x 0.015 x size factor) mSv CTDIvol has been reviewed. It is below the limits set by the Radiation Protocol Committee (RPC). Dose modulation, iterative reconstruction, and/or weight based adjustment of the mA/kV was utilized to reduce the radiation dose to as low as reasonably achievable. FINDINGS: LINES and TUBES: None. LOWER THORAX: Subsegmental scarring/atelectasis in the right lower lobe. Triple vessel coronary artery calcific atherosclerosis. HEPATOBILIARY: No focal hepatic lesions. No biliary ductal dilation. GALLBLADDER: No radio-opaque stones or sludge. No wall thickening. SPLEEN: No splenomegaly. PANCREAS: No ductal dilatation. A 1.2 cm pancreatic body cyst (series 300 image 90).. ADRENALS: No adrenal nodules KIDNEYS/URETERS: Kidneys enhance symmetrically. No hydronephrosis. No cystic or solid mass lesions. Polycystic kidneys, without complex features of any cysts. Nonobstructive 8 mm left renal inferior pole calculus. GI TRACT: No abnormal distention, wall thickening, or evidence of bowel obstruction. Colonic diverticuli. Appendix is normal. PELVIC ORGANS/BLADDER: Unremarkable. LYMPH NODES: No lymphadenopathy. VESSELS: Scattered mild arterial vascular calcifications. PERITONEUM / RETROPERITONEUM: No free air or fluid. BONES: There are degenerative changes in the spine. Laminectomies at L4-L5. SOFT TISSUES: Intact surgical changes of ventral hernia repair. Fat-containing inguinal hernias. IMPRESSION: 1. Polycystic kidneys. 2. Colonic diverticulosis without diverticulitis. 3. Triple vessel coronary artery calcific atherosclerosis. 4. An indeterminate 1.2 cm pancreatic body cyst can be further characterized by nonemergent pancreas MRI with contrast. Signed by: Arnoldo Renee DO on 04/28/2019 9:11 PM
[2019-04-28] MEDS ORDERED: MORPHINE SULFATE 2 MG/ML SYR 1ML IV PRN (21:45)
[2019-04-28] MEDS ORDERED: ONDANSETRON HCL INJ 2MG/ML 2ML 2 MG/ML VIAL IV PRN (21:45)
--- OUTSIDE RECORDS SUMMARY | 2019-04-28 22:09 | XMS REPORT | Summary of Care ---
Author Author Carissa Vu, Fern Organization Unknown Address Unknown Phone Unavailable Care Team Providers Care Pharmacy Manager Name Role Phone IFTIKHAR Bledsoe, GISELE Unavailable Unavailable PANKAJ SQUIRES M.D., LARRY Unavailable Unavailable CHIRAG Bledsoe, IRVIN Unavailable Unavailable EUANAS P.A., KIRSTIE Unavailable Unavailable Carissa Vu, Fern Unavailable Unavailable DARRIAN TINSLEY [place], SVITLANA Neff Unavailable Unavailable MAISHA T[place], BUCK Butler Unavailable Unavailable CHRIS T[place], IVON [place] Unavailable Unavailable IFTIKHAR TINS[place], GISELE Unavailable Unavailable CHIRAG T[place], IRVIN Rivera Unavailable Unavailable JULIA, LARRY Unavailable [...] 1/2 tablet as directed Quantity: 90 IFTIKHAR M.DGISELE Maddox * Start : 28-Jan-2012 Active glipiZIDE 5 MG Oral Tablet TAKE 1 TABLET IN THE MORNING WITH FOOD AND TAKE 1 TABLET IN THE EVENING WITH TIMI D * Quantity: 180 Refills: 0 IFTIKHAR M.GISELE Tracy * Start : 28-Jan-2012 Active metFORMIN HCl ER 500 MG Oral Tablet Extended Release 24 Hour TAKE 1 TABLET BY MOUTH ONCE DAILY * Quantity: 90 Refills: 0 IFTIKHAR M.D.GISELE * Start : 28-Jan-2012 Active Niacin ER 500 MG Oral Capsule Extended Release TAKE 2 CAPSULE AT BEDTIME. (May give NIASPAN 500) Per Dr Hurst * Refills: 1 IFTIKHAR M.GISELE Tracy * Start : 28-Jan-2012 Active Atorvastatin Calcium 80 MG Oral Tablet TAKE 1 TABLET AT BEDTIME * Quantity: 90 Refills: 0 IFTIKHAR M.D., GISELE * Start : 28-Jan-2012 Active Ramipril 10 MG Oral Capsule TAKE 1 CAPSULE BY MOUTH ONCE DAILY * Quantity: 90 Refills: 0 GISELE BUITRAGO M.D. * Start : 28-Jan-2012 Active hydroCHLOROthiazide 12.5 MG Oral Tablet TAKE 1 TABLET EVERY DAY * Quantity: 90 Refills: 0 GISELE BUITRAGO M.D. * Start : 28-Jan-2012 Active Fish Oil [...] DAILY * Quantity: 2 Refills: 0 LARRY IRCHARDS M.D. * Start : 20-Mar-2018 Active 100 [...] Immunization Name Dates Details Influenza Lot #: [id number] on: 02-Jan-2014 Fluzone High-Dose 0.5 ML Intramuscular Suspension Prefilled Syringe Lot #: [id number] on: 21-Mar-2017 Fluzone High-Dose 0.5 ML Intramuscular Suspension Prefilled Syringe Lot #: [id number] on: 10-Nov-2017 Prevnar 13 Intramuscular Suspension Lot #: [id number] on: 10-Nov-2017 Family History Name Dates Details [...] Details - Status: Name Dates Details Never smoked tobacco (finding) Vital Signs Date Test Result Details No Known Vitals to report Results Date Description Value Details [id number] [U] XRAY KNEE 3 VWS LEFT [id number] XR KNEE 3 VWS LEFT Images acquired, not reported on this accession number. Plan of Care Name Dates Details Planned Observations Planned Goals not documented Planned Encounters Appointment; GISELE BUITRAGO M.D. On: 12-Jun-2019 10:00 Interventions Provided Discussion/Summary* Guideline Used: * [facility] [place] * Dr. Villela with [facility] called request speak with Dr. Pope regarding this patient. Dr. Villela contact #[phone]; [place] Text Dr. Pope as noted below: * Message ID: [id number] * Sender Name: Fern Ferrer * Sender User Name: [email or web address] * Recipient: Jimmie Pope * Created: Apr 28, 2019 21:29:13 * Status: Read * TTL: [id number] * Intended Caller Action: * Other: Speak with clinic staff Instructions Name Dates Details Instructions not documented [...] Problem not documented On: 08-Mar-2019 10:00 Appointment; KIRSTIE OLIVO P.A. Encounter Diagnosis: Problem not documented On: 11-Apr-2019 10:15
[2019-04-28] MEDS: SODIUM CHLORIDE 0.9% 1000ML 1,000 ML IV SCH (22:30)
[2019-04-28] MEDS ORDERED: METHOCARBAMOL500 MG PO (22:34)
[2019-04-29] VITALS (11 sets, daily range): BP systolic 111–139; BP diastolic 58–73
--- NOTE | 2019-04-29 02:00 | NUR ---
Patient received via stretcher from ER accompanied by . AAO x 3. Patient had no complaints of pain . Respirations even and non-labored on 4L NC. Admission history obtained. Initial physical assessment performed. Patient oriented to room, call light and plan of care. Fall precautions implemented. Patient instructed to call for assistance when needed. Call light within reach.
[2019-04-29] MEDS: SODIUM CHLORIDE 0.9% 1000ML 1,000 ML IV SCH ×2 (05:38→23:58)
--- NOTE | 2019-04-29 06:07 | NUR ---
Dr. Demarcus Ames paged regarding new consult. Reason: Pancreatitis. Awaiting call back.
--- NOTE | 2019-04-29 06:45 | NUR ---
Patient resting comfortably. Bed- side report given to oncoming nurse.
[2019-04-29 08:20] LABS: BASOPHILS % 0.5 % (0.0-1.0); EOSINOPHILS # (AUTO) 0.2 (0.0-0.4); HEMATOCRIT 47.2 % (38.2-49.6); HEMOGLOBIN 14.6 g/dL (14.0-18.0); LYMPHOCYTES # (AUTO) 0.8 (1.0-3.2); LYMPHOCYTES % 11.2 % (18.0-39.1); MEAN CORPUSCULAR HEMOGLOBIN 29.6 pg (28-32); MEAN CORPUSCULAR HGB CONC 30.9 g/dL (31-35); MEAN CORPUSCULAR VOLUME 95.5 fL (81-99); MONOCYTES # (AUTO) 0.9 (0.2-0.8); MONOCYTES % 11.6 % (4.4-11.3); NEUTROPHILS # (AUTO) 5.4 (2.1-6.9); NEUTROPHILS % 73.3 % (38.7-80.0); PLATELET COUNT 192 x10e3/uL (140-360); RED BLOOD COUNT 4.94 x10e6/uL (4.3-5.7); RED CELL DISTRIBUTION WIDTH 14.9 % (11.7-14.4)
[2019-04-29 08:45] LABS: ALBUMIN 3.6 g/dL (3.5-5.0); ALBUMIN/GLOBULIN RATIO 1.1 (0.8-2.0); ANION GAP 11.8 mmol/L (8-16); CREATININE, SERUM 1.47 mg/dL (0.72-1.25); POTASSIUM 3.8 mmol/L (3.5-5.1)
[2019-04-29] MEDS ORDERED: DEXTROSE 50% SYRINGE 50 ML IV PRN (09:15)
[2019-04-29] MEDS: INSULIN LISPRO 100 UNIT/1 ML 3ML VIAL SQ SCH ×3 (11:30→20:54)
[2019-04-29] MEDS ORDERED: GADOBENATE DIMEGLUMINE 0 ML IV ONE (12:18)
[2019-04-29] MEDS ORDERED: SODIUM CHLORIDE 0.9% 100 ML ONE (12:18)
--- NOTE | 2019-04-29 14:40 | Diagnostic Imaging Report ---
EXAM: CT Chest WITHOUT intravenous contrast 04/29/2019 1:19 PM INDICATION: Pneumonia COMPARISON: Chest radiograph 05/10/2019 TECHNIQUE: Chest was scanned utilizing a multidetector helical scanner from the lung apex through the level of the adrenal glands without administration of IV contrast. Coronal and sagittal reformations were obtained. Routine protocol was performed. IV CONTRAST: None RADIATION DOSE: Total DLP: 583 mGy*cm. Dose modulation, iterative reconstruction, and/or weight based adjustment of the mA/kV was utilized to reduce the radiation dose to as low as reasonably achievable. COMPLICATIONS: None FINDINGS: LINES/ TUBES: None. LUNGS AND AIRWAYS: The central airways are patent. No focal consolidation or pulmonary edema. Mild bilateral lower lobe subsegmental atelectasis. No suspicious pulmonary nodules. PLEURA: The pleural spaces are clear. HEART AND MEDIASTINUM: Partially visualized thyroid gland appears unremarkable. No supraclavicular, axillary, mediastinal, or hilar lymphadenopathy. The heart is not enlarged. No pericardial effusion. Atherosclerotic calcifications involve the aorta, coronary arteries, and proximal great vessels. UPPER ABDOMEN: No acute findings. Large bilateral renal cysts. Diverticulosis. Findings described in better detail on the dedicated CT abdomen and pelvis of 04/28/2019. BONES: No acute osseous injury. Mild degenerative changes of the visualized spine. SOFT TISSUES: Unremarkable. IMPRESSION: No focal pneumonia or pulmonary edema. Signed by: Tay Malone MD on 04/29/2019 2:37 PM
--- NOTE | 2019-04-29 16:00 | Diagnostic Imaging Report ---
TECHNIQUE: MRI of the abdomen WITHOUT intravenous contrast. INDICATION: 79-year-old man with cyst in pancreas with pancreatitis. COMPARISON: Abdomen and pelvis CT 04/28/2019. FINDINGS: ABSENCE OF INTRAVENOUS CONTRAST DECREASES SENSITIVITY FOR DETECTION OF FOCAL LESIONS AND VASCULAR PATHOLOGY. SUBOPTIMAL EVALUATION SECONDARY TO MOTION ARTIFACT. LOWER THORAX: Unremarkable. LIVER: Decreased signal intensity of the liver on opposed phase imaging, consistent with hepatic steatosis. No focal hepatic lesions. BILIARY: Gallbladder is unremarkable. No biliary ductal dilatation or filling defect. SPLEEN: No splenomegaly. PANCREAS: 1.1 x 1.3 cm cystic lesion in the pancreatic body may contain an internal septation versus debris. Questionable additional 0.6 cm cystic lesion in the pancreatic head/neck. No definite solid masses or ductal dilatation. ADRENALS: No adrenal nodules. KIDNEYS/URETERS: No hydronephrosis. Multiple bilateral renal cysts measure up to 9.9 x 12.1 cm on the right and up to 8.5 x 8.1 cm on the left, some of which contain thin internal septations. PERITONEUM/RETROPERITONEUM: No free fluid. LYMPH NODES: No lymphadenopathy. VESSELS: Unremarkable. GI TRACT: No distention or wall thickening. BONES AND SOFT TISSUES: Degenerative changes of the visualized spine. Soft tissues are unremarkable. IMPRESSION: Suboptimal evaluation secondary to motion artifact and lack of intravenous contrast. 1.3 cm cystic lesion in the pancreatic body, which may contain internal septation versus debris. Differential considerations include side branch intraductal papillary mucinous neoplasm (IPMN) and pseudocyst. Follow-up abdomen MRI/MRCP may be obtained in 6 months for reassessment. Questionable additional subcentimeter cystic lesion in the pancreatic head/neck with same differential considerations as above. This finding may also be reassessed on the recommended abdomen MRI/MRCP. Bilateral renal cysts. Hepatic steatosis. Signed by: Deandre Jarrett MD on 04/29/2019 3:57 PM
[2019-04-29] MEDS: SITAGLIPTIN 100 MG TAB PO SCH (17:35)
[2019-04-29] MEDS: SOTALOL HCL 80 MG TAB PO SCH (17:36)
[2019-04-29] MEDS: CEFTRIAXONE SOD 1 GM/NS 50 ML 50 ML IV SCH (18:44)
--- NOTE | 2019-04-29 20:30 | NUR ---
Received patient from Observation unit, alert not in distress, hooked to 02 support via nasal cannula, call light within easy reach, advised to call for assistance anytime when needed, bed alarm activated, will continue to monitor
[2019-04-29] MEDS: RAMIPRIL 5 MG CAP PO SCH (20:54)
[2019-04-30] VITALS (8 sets, daily range): BP systolic 94–125; BP diastolic 51–63
--- NOTE | 2019-04-30 03:14 | Consultation ---
DATE OF CONSULTATION: 04/29/2019 HISTORY OF PRESENT ILLNESS: This is 79-year-old, who apparently was presented to the hospital because of some abdominal pain, and the patient's workup revealed that he has a lipase of 259, and a CAT scan of the abdomen and pelvis which shows polycystic kidney diverticulosis and 1.2 cm cyst in the body of the pancreas. He had an MRI today, which again showed a 1.3 cm cystic lesion about the pancreas, which may contain internal septations or debris. Also show fatty liver. The patient denies any previous history of pancreatitis in the past. PAST MEDICAL PROBLEM: Significant for history of hypercholesterolemia and history of diabetes. MEDICATIONS: On admission including; atorvastatin calcium, Plavix, B12, glipizide, hydrochlorothiazide, metformin, methocarbamol, niacin, ramipril, Januvia, and sotalol. ALLERGIES: NONE. SOCIAL HISTORY: No alcohol. FAMILY HISTORY: Noncontributory. REVIEW OF SYSTEMS: At this point, he denies any chest pain. Denies any shortness of breath. Denies any dysphagia, or odynophagia. Denies any dysuria, hematuria, or any kind of syncopal episode. PHYSICAL EXAMINATION: GENERAL: Awake and alert, appears to be stable. In no acute distress at this point. VITAL SIGNS: Afebrile currently with stable vital signs. HEAD, EYES, EARS, NOSE, AND THROAT: Normocephalic, sclerae is anicteric. NECK: Supple. HEART: Exam is regular. ABDOMEN: Soft. There is no distention at this point. There is nontender extremities is no clubbing. LAB DATA: WBC of 14.1 on admission, now 7.33. Hemoglobin is normal. BUN of [address] of [address] scan and MRI as noted before. IMPRESSION: Abdominal pain. No is better. Pancreatic cyst, it is unclear at this point. History of diabetes or hypertension. RECOMMENDATION: Continue current care at this point. I will obtain some tumor marker. The patient will need to have an EUS with FNA as an outpatient, and follow clinically. MD IRISH Pryor/ROSE /[id number] cc: MD Nicki Lynch MD
[2019-04-30] MEDS: SODIUM CHLORIDE 0.9% 1000ML 1,000 ML IV SCH ×2 (05:56→21:11)
--- NOTE | 2019-04-30 06:49 | NUR ---
bedside rounding done with dayshift RN, call light within easy reach
[2019-04-30] MEDS: INSULIN LISPRO 100 UNIT/1 ML 3ML VIAL SQ SCH ×4 (07:30→21:15)
[2019-04-30] MEDS ORDERED: ACETAMINOPHEN 325 MG TAB PO PRN (09:15)
[2019-04-30] MEDS: SITAGLIPTIN 100 MG TAB PO SCH (09:49)
[2019-04-30] MEDS: CLOPIDOGREL BISULFATE 75 MG TAB PO SCH (09:49)
[2019-04-30] MEDS: SOTALOL HCL 80 MG TAB PO SCH ×2 (09:50→16:45)
[2019-04-30] MEDS: GUAIFENESIN 600MG/DEXTROMETHORPHAN 30MG TABSR PO SCH ×2 (12:45→21:11)
[2019-04-30] MEDS: ALBUTEROL/IPRATROPIUM 3 ML NEB NEB SCH ×2 (12:54→19:00)
[2019-04-30] MEDS: CEFTRIAXONE SOD 1 GM/NS 50 ML 50 ML IV SCH (17:42)
--- NOTE | 2019-04-30 18:23 | NUR ---
patient up in bed, denies any pain no distress noted, tolerated meals, keep monitoring.
--- NOTE | 2019-04-30 19:15 | NUR ---
BEDSIDE SHIFT REPORT RECEIVED. PATIENT IS RESTING IN BED, RESP EVEN AND UNLABORED. NO ACUTE DISTRESS NOTED. EDUCATED PT ABOUT FALL PRECAUTIONS. PT VERBALIZED UNDERSTANDING. CALL LIGHT WITH IN EASY REACH. INSTRUCTED PT TO USE CALL LIGHT FOR ALL THE NEEDS. BED IS LOW AND LOCKED. SIDE RAILS X2. BED ALARM IS ON. PT DENIES NEEDS AT THIS TIME. CONTINUE TO MONITOR CLOSELY
[2019-04-30] MEDS: RAMIPRIL 5 MG CAP PO SCH (21:11)
[2019-05-01] VITALS: BP 124/58
[2019-05-01] MEDS: ALBUTEROL/IPRATROPIUM 3 ML NEB NEB SCH ×2 (01:30→06:35)
[2019-05-01 04:00] VITALS: BP 142/60
[2019-05-01 05:25] LABS: BASOPHILS % 0.3 % (0.0-1.0); EOSINOPHILS # (AUTO) 0.3 (0.0-0.4); EOSINOPHILS % 4.1 % (0.0-6.0); HEMATOCRIT 44.3 % (38.2-49.6); HEMOGLOBIN 13.7 g/dL (14.0-18.0); LYMPHOCYTES # (AUTO) 1.3 (1.0-3.2); LYMPHOCYTES % 21.8 % (18.0-39.1); MEAN CORPUSCULAR HEMOGLOBIN 29.6 pg (28-32); MEAN CORPUSCULAR HGB CONC 30.9 g/dL (31-35); MEAN CORPUSCULAR VOLUME 95.7 fL (81-99); MONOCYTES % 16.7 % (4.4-11.3); NEUTROPHILS # (AUTO) 3.5 (2.1-6.9); NEUTROPHILS % 56.8 % (38.7-80.0); PLATELET COUNT 171 x10e3/uL (140-360); RED BLOOD COUNT 4.63 x10e6/uL (4.3-5.7); RED CELL DISTRIBUTION WIDTH 14.6 % (11.7-14.4)
[2019-05-01 05:39] LABS: ALBUMIN 3.3 g/dL (3.5-5.0); CALCIUM 8.7 mg/dL (8.4-10.2); CREATININE, SERUM 1.39 mg/dL (0.72-1.25)
--- NOTE | 2019-05-01 07:08 | NUR ---
Received patient lying in bed with eyes open. Respiration even and unlabored without SOB. Call light in reach.
[2019-05-01 07:53] VITALS: BP 133/63
[2019-05-01] MEDS: SITAGLIPTIN 100 MG TAB PO SCH (08:31)
[2019-05-01] MEDS: SOTALOL HCL 80 MG TAB PO SCH (08:32)
[2019-05-01] MEDS: CLOPIDOGREL BISULFATE 75 MG TAB PO SCH (08:32)
[2019-05-01] MEDS: INSULIN LISPRO 100 UNIT/1 ML 3ML VIAL SQ SCH (08:34)
[2019-05-01 08:37] VITALS: BP 133/63
[2019-05-01] MEDS: GUAIFENESIN 600MG/DEXTROMETHORPHAN 30MG TABSR PO SCH (09:18)
[2019-05-01] MEDS: SODIUM CHLORIDE 0.9% 1000ML 1,000 ML IV SCH (09:18)
[2019-05-01] MEDS ORDERED: MUCINEX DM ER1 EACH PO (10:05)
[2019-05-01] MEDS ORDERED: CEFUROXIME250 MG PO (10:05)
[2019-05-01] MEDS ORDERED: COMBIVENT RESPIM4 GM IH (10:06)
[2019-05-01] MEDS ORDERED: ONDANSETRON HCL 4 MG ORAL DISINTEGRATING TAB PO PRN (10:30)
--- NOTE | 2019-05-01 11:01 | NUR ---
PIV to left FA and L hand discontinued, catheter tip intact, no bleeding noted. Discharge education provided and prescription home medications given. Verbalized understanding. Respiration even and unlabored without SOB on room air. Denies SOB. Transported via wheelchair to private vehicle. All personal belongings are taken by family members.
--- NOTE | 2019-05-02 04:20 | Discharge Summary ---
DISCHARGE DIAGNOSES: 1. Acute bronchitis. 2. Incidental finding of a pancreatic cyst. 3. Hypertension, controlled. HOSPITAL COURSE: Mr. Hood is a pleasant 79-year-old gentleman, patient of Dr. Bustillo, who came to the emergency department with a 3-day history of nonproductive cough and malaise. He did not have any dyspnea. He denies history of smoking and no history of recent travel or sick contacts. At the time of admission, he also complained about one episode of nausea, vomiting, and he had some epigastric discomfort. Initial workup in the emergency department found a very mild elevation of the patient's lipase. He had a CT of the abdomen and pelvis showing an incidental finding of a 1.6 cm pancreatic cyst. He was admitted to hospital. He was started on IV antibiotics, supplemental oxygen, and IV fluids. A consult was requested with Gastroenterology, Dr. Ames. A CT of the chest was done to clarify the findings of a possible right lower lobe infiltrate, this was not confirmed on CT scan of the chest. He also had MRCP with findings of no gallstone disease. He had a 1.1 x 1.3 cm cystic lesion in the pancreatic body, perhaps with some internal septation. He was seen by Dr. Ames in consultation. He had a CA-19 and CEA levels, which were both within normal limits. Dr. Ames's opinion is that the patient will need workup as an outpatient, perhaps with endoscopic ultrasound. Mr. oHod has improved. He has much less cough. No dyspnea. No fever. He has been discharged home in stable condition. I spent about 30 minutes [id number] with the patient, his , and son, explained these process and the plan for therapy and the need to follow up with the family service aide and the primary care physician. MD JESSICA Lynch/ROSE /[id number]
== END 2019-05-01 11:01 | disposition home or self-care (01) ==
LOC: ER 16:23 → ERHOLD 22:05 → MED/SURG2 04-29 01:47 → IMCU 04-29 16:38 → MED/SURG2 04-29 20:32
PROVIDERS: ADMIT Internal Medicine; ATTEND Internal Medicine
DX: J20.9 Acute bronchitis, unspecified (principal); K85.00 Idiopathic acute pancreatitis without necrosis or infection; Z88.5 Allergy status to narcotic agent; E11.22 Type 2 diabetes mellitus with diabetic chronic kidney disease; I12.9 Hypertensive chronic kidney disease with stage 1 through stage 4 chronic kidney disease, or unspecified chronic kidney disease; N18.3 Chronic kidney disease, stage 3 (moderate); I48.20 Chronic atrial fibrillation, unspecified; E78.00 Pure hypercholesterolemia, unspecified; K76.0 Fatty (change of) liver, not elsewhere classified; K86.2 Cyst of pancreas; I25.10 Atherosclerotic heart disease of native coronary artery without angina pectoris; Z95.5 Presence of coronary angioplasty implant and graft; M54.9 Dorsalgia, unspecified; F11.90 Opioid use, unspecified, uncomplicated; Z79.84 Long term (current) use of oral hypoglycemic drugs
CPT/HCPCS: 36415 ×4; 71045; 71250; 74177; 74181; 80053 ×3; 81001; 82150; 82270; 82378; 82550; 82553; 82948 ×3; 83690 ×3; 84484; 85025 ×3; 86301; 87040; 87045; 93005; 94640 ×3; 99284; G0378 ×4; J0456; J0696 ×4; J7030 ×3; J7050; Q9967